=== PATIENT | female | born 1935 | race Caucasian/White ===

== ENCOUNTER 2016-09-01 17:16 | Inpatient (IN) | payer MEDICARE, OTHER ==
[2016-09-01] MEDS ORDERED: SODIUM CHLORIDE 0.9% 1,000 ML IV ONE (17:30)
[2016-09-01] MEDS ORDERED: cefTRIAXone 1 GM in SODIUM CHLORIDE 0.9% MINIBAG 100 ML IV STA (20:10)
[2016-09-01] MEDS ORDERED: cefTRIAXone 1 GM VIAL ONE (20:20)
[2016-09-01] MEDS ORDERED: metroNIDAZOLE 250 MG TABLET PO STA (20:50)
[2016-09-01] MEDS ORDERED: metroNIDAZOLE 250 MG TABLET PO ONE (20:56)
[2016-09-01] MEDS ORDERED: SODIUM CHLORIDE FLUSH 0.9% 10 ML SYRINGE IVP PRN (21:31)
[2016-09-01] MEDS ORDERED: ONDANSETRON 4 MG/2 ML VIAL IVP PRN (21:31)
[2016-09-01] MEDS: metroNIDAZOLE 250 MG TABLET PO SCH (22:23)
[2016-09-01] MEDS: SODIUM CHLORIDE 0.9% 1,000 ML IV SCH (22:23)
[2016-09-01] MEDS: SODIUM CHLORIDE FLUSH 0.9% 10 ML SYRINGE IVP SCH (22:24)
[2016-09-01] MEDS: MORPHINE 2 MG/ML SYRINGE IVP PRN (23:46)
[2016-09-02] MEDS ORDERED: IOPAMIDOL-300 100 ML VIAL IVP ONE (00:26)
[2016-09-02] MEDS: LEVOTHYROXINE 75 MCG TABLET PO SCH (06:22)
[2016-09-02] MEDS: metroNIDAZOLE 250 MG TABLET PO SCH ×3 (06:22→20:48)
[2016-09-02] MEDS: traMADol 50 MG TABLET PO PRN ×3 (06:22→20:48)
[2016-09-02] MEDS: GABAPENTIN 300 MG CAPSULE PO SCH ×3 (06:23→20:48)
[2016-09-02] MEDS: SODIUM CHLORIDE FLUSH 0.9% 10 ML SYRINGE IVP SCH ×3 (06:27→21:41)
[2016-09-02] MEDS: INSULIN ASPART 300 UNIT/3 ML PEN SUBQ SCH ×4 (08:06→20:47)
[2016-09-02] MEDS: SODIUM CHLORIDE 0.9% 1,000 ML IV SCH ×2 (08:23→17:13)
[2016-09-02] MEDS: LISINOPRIL 20 MG TABLET PO SCH (08:23)
[2016-09-02] MEDS: amLODIPine 5 MG TABLET PO SCH (08:23)
[2016-09-02] MEDS: MULTIVITAMIN TABLET PO SCH (08:23)
[2016-09-02] MEDS: ACETAMINOPHEN 325 MG TABLET PO PRN ×2 (08:24→13:22)
[2016-09-02] MEDS: hydroCHLOROthiazide 12.5 MG CAPSULE PO SCH (08:24)
[2016-09-02] MEDS: POLYETHYLENE GLYCOL 3350 17 GM PACKET PO SCH (08:25)
[2016-09-02] MEDS: DULoxetine 30 MG CAPSULE PO SCH (08:25)
[2016-09-02] MEDS: cefTRIAXone 1 GM VIAL IM SCH (08:27)
[2016-09-02] MEDS ORDERED: NON FORMULARY MED (Lisinopril [Lisinopril] 40 MG) ORAL SCH (09:00)
[2016-09-02] MEDS ORDERED: RIVAROXABAN 10 MG TABLET PO SCH (09:00)
[2016-09-02] MEDS ORDERED: NON FORMULARY MED (Rivaroxaban [Xarelto] 20 MG) ORAL SCH (09:00)
[2016-09-02] MEDS ORDERED: NON FORMULARY MED (Multivitamin [Multivitamins] 1 EACH) ORAL SCH (09:00)
[2016-09-02] MEDS: MORPHINE 2 MG/ML SYRINGE IVP PRN (17:11)
[2016-09-02] MEDS: INSULIN GLARGINE 300 UNIT/3 ML PEN SUBQ SCH (20:46)
[2016-09-02] MEDS: ATORVASTATIN 10 MG TABLET PO SCH (20:48)
[2016-09-02] MEDS ORDERED: GABAPENTIN 300 MG CAPSULE PO SCH (21:00)
[2016-09-02] MEDS ORDERED: INSULIN GLARGINE 300 UNIT/3 ML PEN SUBQ SCH (21:00)
[2016-09-02] MEDS ORDERED: ZINC OXIDE 20% OINT 28.35 GM TUBE TOP PRN (22:39)
[2016-09-03] MEDS: traMADol 50 MG TABLET PO PRN ×3 (00:41→22:19)
[2016-09-03] MEDS: SODIUM CHLORIDE 0.9% 1,000 ML IV SCH ×3 (01:55→22:18)
[2016-09-03] MEDS: GABAPENTIN 300 MG CAPSULE PO SCH ×3 (06:05→22:19)
[2016-09-03] MEDS: LEVOTHYROXINE 75 MCG TABLET PO SCH (06:06)
[2016-09-03] MEDS: metroNIDAZOLE 250 MG TABLET PO SCH ×3 (06:06→22:19)
[2016-09-03] MEDS: SODIUM CHLORIDE FLUSH 0.9% 10 ML SYRINGE IVP SCH ×3 (06:49→22:21)
[2016-09-03] MEDS ORDERED: RIVAROXABAN 10 MG TABLET PO SCH (08:00)
[2016-09-03] MEDS: INSULIN ASPART 300 UNIT/3 ML PEN SUBQ SCH ×4 (09:56→22:20)
[2016-09-03] MEDS: DULoxetine 30 MG CAPSULE PO SCH (10:08)
[2016-09-03] MEDS: amLODIPine 5 MG TABLET PO SCH (10:08)
[2016-09-03] MEDS: MULTIVITAMIN TABLET PO SCH (10:08)
[2016-09-03] MEDS: LISINOPRIL 20 MG TABLET PO SCH (10:08)
[2016-09-03] MEDS: POLYETHYLENE GLYCOL 3350 17 GM PACKET PO SCH (10:08)
[2016-09-03] MEDS: hydroCHLOROthiazide 12.5 MG CAPSULE PO SCH (10:08)
[2016-09-03] MEDS: ACETAMINOPHEN 325 MG TABLET PO PRN (10:18)
[2016-09-03] MEDS: cefTRIAXone 1 GM VIAL IM SCH (10:45)
[2016-09-03] MEDS: MORPHINE 2 MG/ML SYRINGE IVP PRN (11:41)
[2016-09-03] MEDS: LIDOCAINE PATCH 5% TOP PRN (11:54)
[2016-09-03] MEDS ORDERED: cefTRIAXone 1 GM VIAL IV SCH (15:00)
[2016-09-03] MEDS: RIVAROXABAN 10 MG TABLET PO SCH (16:45)
[2016-09-03] MEDS ORDERED: POTASSIUM CHLORIDE 10 MEQ CAPSULE PO SCH (17:00)
[2016-09-03] MEDS: INSULIN GLARGINE 300 UNIT/3 ML PEN SUBQ SCH (22:19)
[2016-09-03] MEDS: ATORVASTATIN 10 MG TABLET PO SCH (22:19)
[2016-09-04] MEDS: traMADol 50 MG TABLET PO PRN ×3 (05:34→13:53)
[2016-09-04] MEDS: GABAPENTIN 300 MG CAPSULE PO SCH ×3 (05:34→21:54)
[2016-09-04] MEDS: metroNIDAZOLE 250 MG TABLET PO SCH ×3 (05:34→21:54)
[2016-09-04] MEDS: LEVOTHYROXINE 75 MCG TABLET PO SCH (05:34)
[2016-09-04] MEDS: SODIUM CHLORIDE FLUSH 0.9% 10 ML SYRINGE IVP SCH ×3 (06:13→22:05)
[2016-09-04] MEDS: INSULIN ASPART 300 UNIT/3 ML PEN SUBQ SCH ×4 (08:00→22:04)
[2016-09-04] MEDS: SODIUM CHLORIDE 0.9% 1,000 ML IV SCH ×2 (08:46→18:24)
[2016-09-04] MEDS: MULTIVITAMIN TABLET PO SCH (08:47)
[2016-09-04] MEDS: LISINOPRIL 20 MG TABLET PO SCH (08:47)
[2016-09-04] MEDS: DULoxetine 30 MG CAPSULE PO SCH (08:47)
[2016-09-04] MEDS: POTASSIUM CHLORIDE 10 MEQ CAPSULE PO SCH ×3 (08:47→16:33)
[2016-09-04] MEDS: hydroCHLOROthiazide 12.5 MG CAPSULE PO SCH (08:47)
[2016-09-04] MEDS: POLYETHYLENE GLYCOL 3350 17 GM PACKET PO SCH (08:48)
[2016-09-04] MEDS: amLODIPine 5 MG TABLET PO SCH (08:48)
[2016-09-04] MEDS ORDERED: cefTRIAXone 1 GM in SODIUM CHLORIDE 0.9% MINIBAG 100 ML IV SCH (09:00)
[2016-09-04] MEDS: LIDOCAINE PATCH 5% TOP PRN (12:29)
[2016-09-04] MEDS: ACETAMINOPHEN 1,000 MG/100 ML 100 ML IV PRN (15:48)
[2016-09-04] MEDS: RIVAROXABAN 10 MG TABLET PO SCH (16:33)
[2016-09-04] MEDS: ATORVASTATIN 10 MG TABLET PO SCH (21:54)
[2016-09-04] MEDS: INSULIN GLARGINE 300 UNIT/3 ML PEN SUBQ SCH (22:05)
[2016-09-05] MEDS: SODIUM CHLORIDE 0.9% 1,000 ML IV SCH ×3 (03:30→23:52)
[2016-09-05] MEDS: GABAPENTIN 300 MG CAPSULE PO SCH ×3 (07:13→21:28)
[2016-09-05] MEDS: LEVOTHYROXINE 75 MCG TABLET PO SCH ×2 (07:13→07:17)
[2016-09-05] MEDS: metroNIDAZOLE 250 MG TABLET PO SCH ×3 (07:13→21:28)
[2016-09-05] MEDS: SODIUM CHLORIDE FLUSH 0.9% 10 ML SYRINGE IVP SCH ×3 (07:14→21:29)
[2016-09-05] MEDS: INSULIN ASPART 300 UNIT/3 ML PEN SUBQ SCH ×4 (08:08→21:29)
[2016-09-05] MEDS: MULTIVITAMIN TABLET PO SCH (08:09)
[2016-09-05] MEDS: hydroCHLOROthiazide 12.5 MG CAPSULE PO SCH (08:10)
[2016-09-05] MEDS: traMADol 50 MG TABLET PO PRN (08:10)
[2016-09-05] MEDS: amLODIPine 5 MG TABLET PO SCH (08:10)
[2016-09-05] MEDS: POTASSIUM CHLORIDE 10 MEQ CAPSULE PO SCH ×3 (08:10→16:09)
[2016-09-05] MEDS: POLYETHYLENE GLYCOL 3350 17 GM PACKET PO SCH (08:11)
[2016-09-05] MEDS: DULoxetine 30 MG CAPSULE PO SCH (08:11)
[2016-09-05] MEDS: LISINOPRIL 20 MG TABLET PO SCH (08:11)
[2016-09-05] MEDS: ACETAMINOPHEN 1,000 MG/100 ML 100 ML IV PRN ×2 (08:25→16:08)
[2016-09-05] MEDS: LIDOCAINE PATCH 5% TOP PRN (13:22)
[2016-09-05] MEDS ORDERED: MAGNESIUM SULFATE 2 GRAM 50 ML IV ONE (14:00)
[2016-09-05] MEDS: RIVAROXABAN 10 MG TABLET PO SCH (16:08)
[2016-09-05] MEDS: SACCHAROMYCES BOULARDII 250 MG CAPSULE PO SCH (16:08)
[2016-09-05] MEDS: ATORVASTATIN 10 MG TABLET PO SCH (21:28)
[2016-09-05] MEDS: INSULIN GLARGINE 300 UNIT/3 ML PEN SUBQ SCH (21:28)
[2016-09-06] MEDS: ACETAMINOPHEN 1,000 MG/100 ML 100 ML IV PRN ×2 (00:04→08:46)
[2016-09-06] MEDS: metroNIDAZOLE 250 MG TABLET PO SCH (07:06)
[2016-09-06] MEDS: traMADol 50 MG TABLET PO PRN ×2 (07:09→11:43)
[2016-09-06] MEDS: GABAPENTIN 300 MG CAPSULE PO SCH (07:09)
[2016-09-06] MEDS: LEVOTHYROXINE 75 MCG TABLET PO SCH (07:12)
[2016-09-06] MEDS: hydroCHLOROthiazide 12.5 MG CAPSULE PO SCH (08:47)
[2016-09-06] MEDS: POLYETHYLENE GLYCOL 3350 17 GM PACKET PO SCH (08:47)
[2016-09-06] MEDS: DULoxetine 30 MG CAPSULE PO SCH (08:47)
[2016-09-06] MEDS: SACCHAROMYCES BOULARDII 250 MG CAPSULE PO SCH (08:47)
[2016-09-06] MEDS: POTASSIUM CHLORIDE 10 MEQ CAPSULE PO SCH (08:48)
[2016-09-06] MEDS: INSULIN ASPART 300 UNIT/3 ML PEN SUBQ SCH (08:48)
[2016-09-06] MEDS: amLODIPine 5 MG TABLET PO SCH (08:48)
[2016-09-06] MEDS: LISINOPRIL 20 MG TABLET PO SCH (08:48)
[2016-09-06] MEDS: MULTIVITAMIN TABLET PO SCH (08:48)
[2016-09-06] MEDS: SODIUM CHLORIDE 0.9% 1,000 ML IV SCH (08:49)
[2016-09-06] MEDS: SODIUM CHLORIDE FLUSH 0.9% 10 ML SYRINGE IVP SCH (08:50)
[2016-09-06] MEDS: LIDOCAINE PATCH 5% TOP PRN (11:43)
== END 2016-09-06 12:41 | disposition home health service (06) | DRG 315 ==
DX: I95.9 Hypotension, unspecified (principal); N30.00 Acute cystitis without hematuria; I48.91 Unspecified atrial fibrillation; A04.7 Enterocolitis due to Clostridium difficile; E86.0 Dehydration; R10.12 Left upper quadrant pain; E11.9 Type 2 diabetes mellitus without complications; I10 Essential (primary) hypertension; E03.9 Hypothyroidism, unspecified; I48.2 Chronic atrial fibrillation; E87.6 Hypokalemia; Z96.89 Presence of other specified functional implants; Z90.49 Acquired absence of other specified parts of digestive tract; Z79.4 Long term (current) use of insulin; Z79.01 Long term (current) use of anticoagulants; Z86.718 Personal history of other venous thrombosis and embolism; Z91.81 History of falling

== ENCOUNTER 2017-08-30 12:49 | Inpatient (IN) | payer MEDICARE, OTHER ==
[2017-08-30 13:45] LABS: BASOPHILS # (AUTO) 0.1 10^3/uL (0.0-0.1); BASOPHILS % (AUTO) 1.3 %; HGB - HEMOGLOBIN 13.3 g/dL (12.0-16.0); LYMPHOCYTES # (AUTO) 0.7 10^3/uL (1.5-3.5); LYMPHOCYTES % (AUTO) 15.4 %; MEAN CORPUSCULAR HEMOGLOBIN 30.9 pg (27.0-31.0); MEAN CORPUSCULAR HGB CONC 34.1 g/dL (32.0-36.0); MEAN CORPUSCULAR VOLUME 90.4 fL (81.0-99.0); MEAN PLATELET VOLUME 8.7 fL (7.9-10.8); MONOCYTES # (AUTO) 0.8 10^3/uL (0.0-1.0); MONOCYTES % (AUTO) 16.1 %; NEUTROPHILS # (AUTO) 3.1 10^3/uL (1.5-6.6); NEUTROPHILS % (AUTO) 66.2 %; PLT - PLATELET COUNT 227 10^3/uL (130-450); RED BLOOD COUNT 4.31 10^6/uL (4.20-5.40); RED CELL DISTRIBUTION WIDTH 13.1 % (12.0-15.0); WHITE BLOOD COUNT 4.7 x10^3/uL (4.8-10.8)
[2017-08-30] MEDS ORDERED: diltiaZEM INJ 5 MG/ML VIAL IVP STA ×2 (13:48→15:16)
--- NOTE | 2017-08-30 13:57 | ED Physician Documentation ---
History of Present Illness - Stated complaint Stated Complaint: IRREGULAR/FAST HB - Chief complaint Chief Complaint: General - History obtained from History obtained from: Patient, Family - History of Present Illness Timing: How many days ago (3) - Additonal information Additional information: 82-year-old female with a history of atrial fibrillation on Xarelto has developed weakness and faintness and has rapid heart rate. She has noted over the last several days that if she tries to lay flat she will become more short of breath and she is short of breath on exertion. She did go into see Dr. Waite today and she was sent to the emergency department here with a heart rate of 150. She has had atrial fibrillation and has had rapid ventricular response previously as well. Review of Systems Constitutional: reports: Myalgias, Fatigue. denies: Fever Eyes: denies: Decreased vision Ears: denies: Ear pain Nose: denies: Congestion Throat: denies: Sore throat Cardiac: reports: Chest pain / pressure. denies: Palpitations Respiratory: reports: Dyspnea. denies: Cough GI: denies: Abdominal Pain, Nausea, Vomiting : denies: Dysuria, Frequency Skin: denies: Rash Musculoskeletal: denies: Neck pain, Back pain, Extremity pain Neurologic: reports: Generalized weakness. 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 HEENT: Cataracts - Present Medications Home Medications: Ambulatory Orders Medication Instructions Recorded Confirmed Lisinopril 40 mg ORAL DAILY 04/09/14 09/02/16 Multivitamin [Multivitamins] 1 each ORAL DAILY 04/09/14 09/02/16 Rivaroxaban [Xarelto] 20 mg PO 1700 04/09/14 09/02/16 amLODIPine [Norvasc] 10 mg ORAL DAILY 04/09/14 09/02/16 Gabapentin 600 mg PO QPM 04/21/16 09/02/16 Levothyroxine [Synthroid] 75 mcg PO QDAC 04/21/16 09/02/16 Hydrocodone/Acetaminophen 1 - 2 tab PO Q6H PRN 07/15/16 09/02/16 [Hydrocodon-Acetaminophen 5-325] Atorvastatin [Lipitor] 20 mg PO QPM tablet 07/17/16 09/02/16 Insulin Glargine [Lantus Solostar] 5 units SUBQ QPM 09/02/16 09/02/16 Metformin HCl 500 mg PO BIDWM 09/02/16 09/02/16 Potassium Chloride 20 meq PO DAILYWM 09/02/16 09/02/16 DULoxetine [Cymbalta] 30 mg PO DAILY #30 capsule 09/06/16 Lidocaine Patch 5% [Lidoderm Patch] 1 patch TOP DAILY PRN #30 patch 09/06/16 metroNIDAZOLE [Flagyl] 500 mg PO Q8H #48 tablet 09/06/16 traMADol [Ultram] 50 mg PO Q4HR PRN #30 tablet 09/06/16 - Allergies Allergies/Adverse Reactions: Allergies Allergy/AdvReac Type Severity Reaction Status Date / Time No Known Drug Allergies Allergy Verified 08/30/17 13:04 - Social History Does the pt smoke?: No Smoking Status: Never smoker Does the pt drink ETOH?: No Does the pt have substance abuse?: No - Immunizations Immunizations are current?: Yes - POLST Patient has POLST: No PD ED PE NORMAL - Vitals Vital signs reviewed: Yes - General General: Alert and oriented X 3, No acute distress, Well developed/nourished - HEENT HEENT: Atraumatic, PERRL - Neck Neck: Supple, no meningeal sign - Cardiac Cardiac: Other (tachycardic and regular with 2/6 holosystolic murmer at LSB) - Respiratory Respiratory: No respiratory distress, Other (rales bibasilar) - Abdomen Abdomen: Soft, Non tender - Back Back: No CVA TTP, No spinal TTP - Derm Derm: Normal color, Warm and dry, No rash - Extremities Extremities: No deformity - Neuro Neuro: No motor deficit, No sensory deficit Eye Opening: Spontaneous Motor: Obeys Commands Verbal: Oriented GCS Score: 15 - Psych Psych: Normal mood, Normal affect Results - Vitals Vitals: Vital Signs - 24 hr 08/30/17 08/30/17 08/30/17 12:52 14:01 14:04 Temperature 36.6 C Heart Rate 150 H 151 H 75 Respiratory 20 20 20 Rate Blood Pressure 131/93 H 127/92 H 83/64 L O2 Saturation 93 90 L 90 L 08/30/17 08/30/17 08/30/17 14:09 14:15 15:09 Temperature Heart Rate 76 75 114 H Respiratory 25 H 20 23 Rate Blood Pressure 93/67 94/69 135/74 H O2 Saturation 92 93 98 08/30/17 08/30/17 08/30/17 15:16 15:28 15:35 Temperature Heart Rate 122 H 130 H 76 Respiratory 25 H 30 H Rate Blood Pressure 102/78 85/63 L O2 Saturation 97 90 L 08/30/17 08/30/17 08/30/17 15:40 15:52 16:53 Temperature 36.3 C L Heart Rate 76 75 112 H Respiratory 24 17 27 H Rate Blood Pressure 85/63 L 92/70 130/111 H O2 Saturation 92 95 97 08/30/17 08/30/17 08/30/17 17:34 17:38 17:52 Temperature Heart Rate 151 H 115 H 97 Respiratory 24 24 10 L Rate Blood Pressure 128/100 H 135/110 H 132/80 H O2 Saturation 94 92 94 08/30/17 08/30/17 08/30/17 17:58 18:09 18:16 Temperature Heart Rate 94 75 90 Respiratory 25 H 20 25 H Rate Blood Pressure 112/79 127/70 104/91 H O2 Saturation 93 97 87 L Oxygen O2 Source [] 3.5 L O2 via NC O2 Source [] 3.5 L O2 via NC O2 Source Room air - EKG (time done) 1301 Rate: Rate (enter#) (150) Rhythm: Atrial fibrillation Compare to prior EKG: Changed from prior EKG (SPT 2-2-17 rate has increased .) Computer interpretation: Agree with computer - Labs Labs: Laboratory Tests 08/30/17 08/30/17 08/30/17 13:40 13:40 13:40 WBC 4.7 L RBC 4.31 Hgb 13.3 Hct 38.9 MCV 90.4 MCH 30.9 MCHC 34.1 RDW 13.1 Plt Count 227 MPV 8.7 Neut # 3.1 Lymph # 0.7 L [place] # 0.8 Eos # 0.0 Baso # 0.1 Absolute Nucleated RBC 0.00 Nucleated RBC % 0.0 Sodium 129 L Potassium 4.7 Chloride 98 L Carbon Dioxide 23 Anion Gap 8.0 BUN 31 H Creatinine 0.5 Estimated GFR (MDRD) 118 Glucose 199 H Calcium 8.8 Total Bilirubin 0.8 AST 23 ALT 16 Alkaline Phosphatase 65 Troponin I < 0.04 B-Natriuretic Peptide Total Protein 7.0 Albumin 3.6 Globulin 3.4 Albumin/Globulin Ratio 1.1 Lipase 15 L Urine Color Urine Clarity Urine pH Ur Specific [place] Urine Protein Urine Glucose (UA) Urine Ketones Urine Occult Blood Urine Nitrite Urine Bilirubin Urine Urobilinogen Ur Leukocyte Esterase Urine RBC Urine WBC Ur Squamous Epith Cells Urine Bacteria Ur Microscopic Review Urine Culture Comments 08/30/17 08/30/17 13:40 16:30 WBC RBC Hgb Hct MCV MCH MCHC RDW Plt Count MPV Neut # Lymph # [place] # Eos # Baso # Absolute Nucleated RBC Nucleated RBC % Sodium Potassium Chloride Carbon Dioxide Anion Gap BUN Creatinine Estimated GFR (MDRD) Glucose Calcium Total Bilirubin AST ALT Alkaline Phosphatase Troponin I B-Natriuretic Peptide 732 H Total Protein Albumin Globulin Albumin/Globulin Ratio Lipase Urine Color DARK YELLOW Urine Clarity CLEAR Urine pH 6.0 Ur Specific [place] 1.025 Urine Protein 30 H Urine Glucose (UA) NEGATIVE Urine Ketones NEGATIVE Urine Occult Blood TRACE-INTA Urine Nitrite NEGATIVE Urine Bilirubin NEGATIVE Urine Urobilinogen 1 (NORMAL) Ur Leukocyte Esterase NEGATIVE Urine RBC 0-5 Urine WBC 0-3 Ur Squamous Epith Cells MANY Squamous H Urine Bacteria Moderate H Ur Microscopic Review INDICATED Urine Culture Comments NOT INDICATED - Rads (name of study) 2 view chest Radiology: Prelim report reviewed (Impression: 1. Increasing density in the left lower lobe since 07/20/2016. Differential including worsening atelectasis , small left pleural effusion or left basilar pneumonia. 2. Other findings unchanged noting anterior kyphosis secondary to lower thoracic spine wedging compression fracture.), EMP read indepedently, See rad report Procedures - IVC sono (time) 1825 Bedside IVC sono: IVC measures (cm) (1.87), IVC collapsed c insp (cm) (1.71), High CVP PD MEDICAL DECISION MAKING - ED course Complexity details: reviewed old records, reviewed results, re-evaluated patient , considered differential, d/w patient, d/w family ED course: 82-year-old female sent to the emergency department by her primary care doctor when she arrived to the office with a heart rate of 150. She has a history of chronic atrial fibrillation. She feels she has been in this rhythm for the past 3 days. She is complaining of shortness of breath when she lies flat. Here in the emergency department her rate is 150 and she is administered first 20 mg of diltiazem with improvement in her rate however the rate creeps back up shortly after and she is administered a 25 mg bolus. She again has some improvement in her rate but continues to have spikes in her rate to 150 and metoprolol 5 mg intravenously is administered twice. She has improvement in her rate that is sustained. She has developed some congestive heart failure with this and rate control alone does not significantly improve that she is administered Lasix 40 mg intravenously. She will need to stay in the hospital as she has some hypoxia associated. Departure - Departure Disposition: ED Place in Observation Clinical Impression: Atrial fibrillation with RVR Congestive heart failure Qualifiers: Congestive heart failure type: unspecified Congestive heart failure chronicity : acute Qualified Code(s): I50.9 - Heart failure, unspecified
[2017-08-30 13:59] LABS: ALBUMIN 3.6 g/dL (3.2-5.5); ALBUMIN/GLOBULIN RATIO 1.1 (1.0-2.2); BILIRUBIN,TOTAL 0.8 mg/dL (0.2-1.0); CALCIUM 8.8 mg/dL (8.5-10.3); CREATININE 0.5 mg/dL (0.4-1.0)
--- NOTE | 2017-08-30 15:19 | XRAY Preliminary Report ---
Exam: XR CHEST 2 VIEW X-RAY IMPRESSION: 1. Increasing density in the left lower lobe since 07/20/2016. Differential including worsening atele ctasis, small left pleural effusion or left basilar pneumonia. 2. Other findings unchanged noting anterior kyphosis secondary to a lower thoracic spine wedging comp ression fracture [facility] SITE ID: [id number]
--- NOTE | 2017-08-30 15:19 | XRAY Report ---
EXAM: CHEST RADIOGRAPHY EXAM DATE: 08/30/2017 02:54 PM. CLINICAL HISTORY: Dyspnea/tachy . COMPARISON: 07/18/2016. 07/20/2016 TECHNIQUE: 2 views. FINDINGS: Lungs/Pleura: There is hypoaeration at the left lung base and the left diaphragm contour is not visua lized. Previously, the left diaphragm contour was partially seen indicating an increased left basilar density. The right lung appears clear and unchanged. Mediastinum: Cardiac silhouette is prominent but unchanged. There is moderate thoracic aortic calcifi cation. Other: There is an old wedging compression fracture in the lower thoracic spine with anterior kyphosi s, unchanged. IMPRESSION: 1. Increasing density in the left lower lobe since 07/20/2016. Differential including worsening atele ctasis, small left pleural effusion or left basilar pneumonia. 2. Other findings unchanged noting anterior kyphosis secondary to a lower thoracic spine wedging comp ression fracture [facility] Referring Provider Line: [phone] SITE ID: [id number]
[2017-08-30 16:51] LABS: GLUCOSE, URINE (UA) NEGATIVE (NEGATIVE); KETONES,URINE (UA) NEGATIVE (NEGATIVE); LEUKOCYTE ESTERASE, URINE NEGATIVE (NEGATIVE); NITRITE,URINE NEGATIVE (NEGATIVE); OCCULT BLOOD,URINE TRACE-INTA (NEGATIVE); PROTEIN,URINE 30 mg/dL (NEGATIVE); UROBILINOGEN,URINE 1 (NORMAL) E.U./dL (NORMAL)
[2017-08-30 16:59] LABS: BILIRUBIN,URINE NEGATIVE (NEGATIVE); CLARITY,URINE CLEAR (CLEAR); ICTOTEST,URINE NEGATIVE
[2017-08-30 17:11] LABS: RBC,URINE 0-5 /HPF (0-5); SQUAMOUS EPITHELIAL CELL,UR MANY Squamous (<= Few)
[2017-08-30 17:12] LABS: BACTERIA,URINE Moderate /HPF (None Seen)
[2017-08-30] MEDS ORDERED: METOPROLOL 5 MG/5 ML VIAL IVP STA ×2 (17:14→17:45)
[2017-08-30] MEDS ORDERED: FUROSEMIDE 40 MG/4 ML VIAL IVP STA (18:24)
[2017-08-30] MEDS ORDERED: TEMAZEPAM 15 MG CAPSULE PO PRN (19:21)
[2017-08-30] MEDS ORDERED: PROCHLORPERAZINE 10 MG/2 ML VIAL IVP PRN (19:21)
[2017-08-30] MEDS ORDERED: LIDOCAINE PATCH 5% TOP PRN (19:31)
[2017-08-30 19:55] LABS: CALCIUM 8.6 mg/dL (8.5-10.3); CREATININE 0.5 mg/dL (0.4-1.0); MAGNESIUM 1.8 mg/dL (1.7-2.8); PHOSPHORUS 3.9 mg/dL (2.5-4.6)
--- NOTE | 2017-08-30 20:13 | HISTORY & PHYSICAL EXAMINATION ---
Chief Complaint - Chief Complaint Chief Complaint: Shortness of breath History of Present Illness - Admitted From Admitted From:: home - History Obtained From History obtained from: patient - History of Present Illness HPI Comment/Other: Ms. Vani Hilario is a very pleasant 82-year-old female with a long-standing medical history of hypertension, hypercholesterolemia, diabetes mellitus, and atrial fibrillation which was diagnosed 1 or 2 years ago. Patient relates that she had some chest pain which was self resolving on Monday but she attributed this to having exercised earlier. Today the patient began to have increasing shortness of breath and felt some palpitations in her chest but otherwise denies any other associated symptomatology such as chest pain, nausea vomiting, or cough. She denies any fevers. She came to the [facility] emergency department where she was evaluated and found to have an elevated heart rate in the 150s and an elevated BNP. Chest x-ray showed left lower lobe hypoaeration in the patient did not have fever or elevated white blood cell count.Despite multiple attempts to reduce her rapid ventricular response she continues to have a heart rate in the 120s and she is now admitted to the intensive care unit on a diltiazem drip for rate control and further cardiac management. 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 - Substance History Use: Uses substance without health or social issues: NONE - POLST Patient has POLST: No POLST Status: Full Code Meds/Allgy - Home Medications Home Medications: Ambulatory Orders Medication Instructions Recorded Confirmed Lisinopril 40 mg ORAL DAILY 04/09/14 09/02/16 Multivitamin [Multivitamins] 1 each ORAL DAILY 04/09/14 09/02/16 Rivaroxaban [Xarelto] 20 mg PO 1700 04/09/14 09/02/16 amLODIPine [Norvasc] 10 mg ORAL DAILY 04/09/14 09/02/16 Gabapentin 600 mg PO QPM 04/21/16 09/02/16 Levothyroxine [Synthroid] 75 mcg PO QDAC 04/21/16 09/02/16 Hydrocodone/Acetaminophen 1 - 2 tab PO Q6H PRN 07/15/16 09/02/16 [Hydrocodon-Acetaminophen 5-325] Atorvastatin [Lipitor] 20 mg PO QPM tablet 07/17/16 09/02/16 Insulin Glargine [Lantus Solostar] 5 units SUBQ QPM 09/02/16 09/02/16 Metformin HCl 500 mg PO BIDWM 09/02/16 09/02/16 Potassium Chloride 20 meq PO DAILYWM 09/02/16 09/02/16 DULoxetine [Cymbalta] 30 mg PO DAILY #30 capsule 09/06/16 Lidocaine Patch 5% [Lidoderm Patch] 1 patch TOP DAILY PRN #30 patch 09/06/16 - Allergies Allergies/Adverse Reactions: Allergies Allergy/AdvReac Type Severity Reaction Status Date / Time No Known Drug Allergies Allergy Verified 08/30/17 13:04 Review of Systems - Constitutional Constitutional: reports: Weakness. denies: Fever, Chills, Malaise - Eyes Eyes: denies: Pain, Irritation, Blurred vision - Ears, Nose & Throat Ears, Nose & Throat: denies: Ear pain, Tinnitus, Vertigo, Nasal discharge - Cardiovascular Cariovascular: reports: Irregular heart rate, Palpitations, Decr. exercise tolerance. denies: Chest pain, Edema, Syncope - Respiratory Respiratory: reports: SOB at rest, SOB with exertion. denies: Cough, Sputum production, Wheezing, Hemoptysis - Gastrointestinal Gastrointestinal: denies: Abdominal pain, Abdominal distention, Constipation, Diarrhea, Change in bowel habits, Rectal bleeding - Genitourinary Genitourinary: denies: Dysuria, Frequency, Urgency, Hematuria - Musculoskeletal Musculoskeletal: denies: Muscle pain, Back pain, Muscle aches, Stiffness - Integumentary Integumentary: denies: Rash, Pruritis, Lesions, Dryness - Neurological Neurological: denies: General weakness, Focal weakness, Headache, Dizziness - Psychiatric Psychiatric: denies: Depression, Anxiety, Suicidal, Hallucinations - Endocrine Endocrine: denies: Polyuria, Polydypsia, Polyphagia - Hematologic/Lymphatic Hematologic/Lymphatic: denies: Anemia, Bruising, Petechiae, Lymphadenopathy - All Other Systems All Other Systems: reports: Reviewed and negative Exam - Vital Signs Reviewed Vital Signs: Yes Vital Signs: Vital Signs x48h Temp Pulse Resp BP Pulse Ox 08/30/17 18:32 100 22 120/98 H 94 08/30/17 18:16 90 25 H 104/91 H 87 L 08/30/17 18:09 75 20 127/70 97 08/30/17 17:58 94 25 H 112/79 93 08/30/17 17:52 97 10 L 132/80 H 94 08/30/17 17:38 115 H 24 135/110 H 92 08/30/17 17:34 151 H 24 128/100 H 94 08/30/17 16:53 112 H 27 H 130/111 H 97 08/30/17 15:52 75 17 92/70 95 08/30/17 15:40 36.3 C L 76 24 85/63 L 92 08/30/17 15:35 76 30 H 85/63 L 90 L 08/30/17 15:28 130 H 25 H 102/78 97 08/30/17 15:16 122 H 08/30/17 15:09 114 H 23 135/74 H 98 08/30/17 14:15 75 20 94/69 93 08/30/17 14:09 76 25 H 93/67 92 08/30/17 14:04 75 20 83/64 L 90 L 08/30/17 14:01 151 H 20 127/92 H 90 L 08/30/17 12:52 36.6 C 150 H 20 131/93 H 93 - Physical Exam General Appearance: positive: No acute distress, Alert Eyes Bilateral: positive: Normal inspection, PERRL, EOMI, No lid inflammation ENT: positive: ENT inspection nml, Pharynx nml, No signs of dehydration. negative: Oral lesions Neck: positive: Nml inspection, Thyroid nml, No JVD, Trachea midline. negative : Thyromegaly Respiratory: positive: Chest non-tender, No respiratory distress, Breath sounds nml. negative: Wheezes, Rales, Rhonchi Cardiovascular: positive: No murmur, No gallop, Irregularly irregular Peripheral Pulses: positive: 1+ Abdomen: positive: Non-tender, No organomegaly, Nml bowel sounds, No distention. negative: Guarding, Rebound Back: positive: Nml inspection. negative: CVA tenderness (R), CVA tenderness (L ) Skin: positive: Color nml, No rash, Warm, Dry. negative: Cyanosis Extremities: positive: Non-tender, Full ROM, Nml appearance Neurologic/Psychiatric: positive: Oriented x3, CN's nml (2-12), Motor nml, Sensation nml, Mood/affect nml Conclusion/Plan - Problem List (1) Atrial fibrillation with RVR Conclusion/Plan: We will admit the patient to the intensive care unit and place her on a diltiazem drip. We will titrate to effect and will monitor closely including her serial troponins and BNP. (2) Congestive heart failure Conclusion/Plan: Most likely secondary to the rapid ventricular response. The patient will be placed on a diltiazem drip in the intensive care unit and we will monitor her fluid status. Qualifiers: Congestive heart failure type: unspecified Congestive heart failure chronicity: acute Qualified Code(s): I50.9 - Heart failure, unspecified (3) Hyponatremia Conclusion/Plan: Sodium level is slowly climbing and we will be restricting the patient's fluids. Will monitor daily. (4) Compression fracture of thoracic vertebra Conclusion/Plan: We will continue the patient on her home medications including gabapentin and oxycodone. - Lab Results Lab results reviewed: Yes Fish Bones: 08/30/17 13:40 08/30/17 19:38 - Diagnostic Imaging Results Diagnostic Imaging Results: positive: Final report reviewed Diagnostic Imaging Results Comments: EXAM: CHEST RADIOGRAPHY EXAM DATE: 08/30/2017 02:54 PM. CLINICAL HISTORY: Dyspnea/tachy . COMPARISON: 07/18/2016. 07/20/2016 TECHNIQUE: 2 views. FINDINGS: Lungs/Pleura: There is hypoaeration at the left lung base and the left diaphragm contour is not visualized. Previously, the left diaphragm contour was partially seen indicating an increased left basilar density. The right lung appears clear and unchanged. Mediastinum: Cardiac silhouette is prominent but unchanged. There is moderate thoracic aortic calcification. Other: There is an old wedging compression fracture in the lower thoracic spine with anterior kyphosis, unchanged. IMPRESSION: 1. Increasing density in the left lower lobe since 07/20/2016. Differential including worsening atelectasis, small left pleural effusion or left basilar pneumonia. 2. Other findings unchanged noting anterior kyphosis secondary to a lower thoracic spine wedging compression fracture Core Measures - Anticipated LOS I expect patient to be DC'd or transferred within 96 hours.: Yes - DVT/VTE - Prophylaxis VTE/DVT Device ordered at admit?: Yes
[2017-08-30 20:16] LABS: HB2 TOTAL 14.8 g/dL; HEMOGLOBIN A1C 0.97 g/dL; HEMOGLOBIN A1C % 8.1 % (4.6-6.2)
[2017-08-30] MEDS ORDERED: SODIUM CHLORIDE 0.9% MINIBAG 100 ML IV ONE (21:01)
[2017-08-30] MEDS ORDERED: SODIUM CHLORIDE FLUSH 0.9% 10 ML SYRINGE ONE (21:06)
[2017-08-30] MEDS: diltiaZEM INJ 125 MG in DEXTROSE 5% 100 ML IV SCH (21:06)
[2017-08-30] MEDS: INSULIN GLARGINE 300 UNIT/3 ML PEN SUBQ SCH (21:30)
[2017-08-30] MEDS: INSULIN ASPART 300 UNIT/3 ML PEN SUBQ SCH (21:31)
[2017-08-30] MEDS: ATORVASTATIN 10 MG TABLET PO SCH (21:33)
[2017-08-30] MEDS: GABAPENTIN 300 MG CAPSULE PO SCH (21:33)
[2017-08-31] MEDS: SODIUM CHLORIDE FLUSH 0.9% 10 ML SYRINGE IVP SCH ×4 (00:20→21:19)
[2017-08-31 04:56] LABS: CALCIUM 8.3 mg/dL (8.5-10.3); CREATININE 0.6 mg/dL (0.4-1.0)
[2017-08-31] MEDS: diltiaZEM INJ 125 MG in DEXTROSE 5% 100 ML IV SCH (06:32)
[2017-08-31] MEDS: LEVOTHYROXINE 75 MCG TABLET PO SCH (06:37)
[2017-08-31] MEDS: PANTOPRAZOLE 40 MG TABLET PO SCH ×2 (06:37→15:38)
[2017-08-31] MEDS: INSULIN ASPART 300 UNIT/3 ML PEN SUBQ SCH ×4 (08:06→21:21)
[2017-08-31] MEDS: DULoxetine 30 MG CAPSULE PO SCH (08:07)
[2017-08-31] MEDS: metFORMIN 500 MG TABLET PO SCH ×2 (08:07→17:11)
[2017-08-31] MEDS: LISINOPRIL 20 MG TABLET PO SCH (08:07)
[2017-08-31] MEDS: POTASSIUM CHLORIDE 20 MEQ TABLET PO SCH (08:07)
[2017-08-31] MEDS: MULTIVITAMIN TABLET PO SCH (08:08)
[2017-08-31] MEDS: FUROSEMIDE 20 MG/2 ML VIAL IVP SCH ×2 (08:47→13:43)
[2017-08-31] MEDS: SODIUM CHLORIDE FLUSH 0.9% 10 ML SYRINGE IVP PRN ×2 (08:48→11:12)
[2017-08-31] MEDS ORDERED: diltiaZEM CD 240 MG CAPSULE PO SCH (11:00)
--- NOTE | 2017-08-31 16:43 | PROVIDER PROGRESS NOTE ---
Assessment/Plan - Problem List (1) Atrial fibrillation with RVR Assessment/Plan: Rate is controlled after overnight on Diltiazem drip Will change to po Cardizem CD 240 daily and DC iv Diltiazem Continue telemetry Await W/U before move out of ICU Continue with good rate control. Po Diltiazem wiytll also help with BP control. 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 Continue diuresis with Lasix, follow I&Os and Na, creat and BNP. LVEF is NOT< 35% to start Coreg or BI (3) Hypertension Assessment/Plan: Continue meds (4) Hyponatremia Assessment/Plan: Possibly from volume excess. Will check urine electrolytes if Na no better after diuresis, follow BMP. (5) Diabetes Qualifiers: Diabetes mellitus type: type 2 Assessment/Plan: Continue DM diet and meds [place] HbA1c. - Current Meds Current Meds: Current Medications Generic Name Dose Route Start Last Admin Trade Name Ronaldo PRN Reason Stop Dose Admin Atorvastatin Calcium 20 mg 08/30/17 21:00 08/30/17 21:33 Lipitor PO 20 mg QPM SHERWIN Administration Diltiazem HCl 240 mg 08/31/17 11:00 08/31/17 10:34 Cardizem Cd PO 240 mg DAILY SHERWIN Administration Duloxetine HCl 30 mg 08/31/17 09:00 08/31/17 08:07 Cymbalta PO 30 mg DAILY SHERWIN Administration Furosemide 20 mg 08/31/17 09:00 08/31/17 13:43 Lasix Inj 20mg Vial IVP 20 mg BIDDIURETIC SHERWIN Administration Gabapentin 600 mg 08/30/17 21:00 08/30/17 21:33 Neurontin PO 600 mg QPM SHERWIN Administration Insulin Aspart 2 - 10 unit 08/31/17 11:46 08/31/17 12:08 Novolog SUBQ 4 unit 0800,1200,1700,2100 SHERWIN Administration Protocol Insulin Glargine 5 unit 08/30/17 21:00 08/30/17 21:30 Lantus Solostar SUBQ 5 unit QPM SHERWIN Administration Levothyroxine Sodium 75 mcg 08/31/17 07:00 08/31/17 06:37 Synthroid PO 75 mcg QDAC SHERWIN Administration Lisinopril 40 mg 08/31/17 09:00 08/31/17 08:07 Zestril PO 40 mg DAILY SHERWIN Administration Metformin HCl 500 mg 08/31/17 08:00 08/31/17 08:07 Glucophage PO 500 mg BIDWM SHERWIN Administration Multivitamins 1 tab 08/31/17 09:00 08/31/17 08:08 Theragran PO 1 tab DAILY SHERWIN Administration Pantoprazole Sodium 40 mg 08/31/17 07:00 08/31/17 15:38 Protonix PO 40 mg BIDAC SHERWIN Administration Potassium Chloride 20 meq 08/31/17 08:00 08/31/17 08:07 K-Dur PO 20 meq DAILYWM SHERWIN Administration Sodium Chloride 10 ml 08/30/17 22:00 08/31/17 13:43 Normal Saline Flush 0.9% IVP 10 ml Q8HR SHERWIN Administration Sodium Chloride 10 ml 08/30/17 19:21 08/31/17 11:12 Normal Saline Flush 0.9% IVP 10 ml PRN PRN Administration NEEDED PER PROVIDER ORDERS - Lab Result Fish Bone Diagrams: 08/30/17 13:40 08/31/17 04:14 - Additional Planning My Orders: My Active Orders 08/31/17 08:00 Echo Transthoracic Complete [ECHO] Routine 08/31/17 09:00 FUROSEMIDE INJ 20mg VIAL [LASIX INJ 20mg VIAL] 20 mg IVP BIDDIURETIC 08/31/17 11:00 diltiaZEM CD [Cardizem Cd] 240 mg PO DAILY 08/31/17 11:46 Insulin Aspart [NovoLOG] 2 - 10 unit SUBQ 0800,1200,1700,2100 08/31/17 14:23 Activity Orders [RC] QSHIFT Subjective - Subjective Patient Reports: Resting Comfortably Nursing Reports: Other (Pt is mouth breathing, on O2 by mask) Objective Vital Signs: Vital Signs - 24 hr 08/30/17 08/30/17 08/30/17 20:00 20:02 21:00 Temperature Heart Rate 150 H Heart Rate [ Monitoring electrodes] Respiratory 24 Rate Blood Pressure 124/89 H Blood Pressure 137/85 H 122/96 H [Left Brachial artery] O2 Saturation 94 08/30/17 08/30/17 08/30/17 21:06 22:00 23:00 Temperature 37.2 C 36.8 C Heart Rate Heart Rate [ 122 H 104 H Monitoring electrodes] Respiratory 24 29 H Rate Blood Pressure 122/96 H Blood Pressure 146/82 H 117/79 [Left Brachial artery] O2 Saturation 96 95 08/31/17 08/31/17 08/31/17 00:00 01:00 02:00 Temperature 37.0 C Heart Rate Heart Rate [ 97 77 87 Monitoring electrodes] Respiratory 27 H 26 H 28 H Rate Blood Pressure Blood Pressure 113/78 115/72 126/77 [Left Brachial artery] O2 Saturation 91 L 92 91 L 08/31/17 08/31/17 08/31/17 03:00 04:00 05:00 Temperature Heart Rate Heart Rate [ 97 95 102 H Monitoring electrodes] Respiratory 26 H 24 25 H Rate Blood Pressure Blood Pressure 132/72 H 91/55 L 137/76 H [Left Brachial artery] O2 Saturation 91 L 96 90 L 08/31/17 08/31/17 08/31/17 06:00 06:57 07:53 Temperature Heart Rate Heart Rate [ 76 90 49 L Monitoring electrodes] Respiratory 22 23 27 H Rate Blood Pressure Blood Pressure 112/73 129/82 H 129/80 [Left Brachial artery] O2 Saturation 95 98 98 08/31/17 08/31/17 08/31/17 08:22 08:50 09:00 Temperature 36.7 C Heart Rate Heart Rate [ 131 H 78 86 Monitoring electrodes] Respiratory 25 H 26 H 23 Rate Blood Pressure Blood Pressure 137/74 H 128/77 102/79 [Left Brachial artery] O2 Saturation 94 95 96 08/31/17 08/31/17 08/31/17 09:34 10:00 11:00 Temperature Heart Rate Heart Rate [ 75 75 74 Monitoring electrodes] Respiratory 20 17 18 Rate Blood Pressure Blood Pressure 116/70 114/75 122/78 [Left Brachial artery] O2 Saturation 96 96 92 08/31/17 08/31/17 08/31/17 12:00 13:00 14:00 Temperature 36.4 C L Heart Rate Heart Rate [ 85 94 100 Monitoring electrodes] Respiratory 25 H 21 24 Rate Blood Pressure Blood Pressure 140/86 H 130/86 H 138/73 H [Left Brachial artery] O2 Saturation 94 99 98 08/31/17 08/31/17 15:00 16:00 Temperature Heart Rate Heart Rate [ 81 75 Monitoring electrodes] Respiratory 25 H 24 Rate Blood Pressure Blood Pressure 108/76 116/76 [Left Brachial artery] O2 Saturation 98 97 Oxygen O2 Source Nasal cannula I&O (Last 24 Hrs): Intake and Output Totals x24h 08/29/17 08/30/17 08/31/17 23:59 23:59 23:59 Intake Total 13.667 1235.087 Output Total 100 850 Balance -86.333 385.087 General: No acute distress, Other (Somnolent) HEENT: Mucous membr. moist/pink Neck: Supple, No JVD Neuro: Other (Sleeping) Cardiovascular: Regular rate, Other (1/6 systolic murmur at LLSB) Respiratory: No respiratory distress Abdomen: Soft Extremities: No edema (Trace pedal edema) - Results Results: Laboratory Results WBC 4.7 x10^3/uL (4.8-10.8) L 08/30/17 13:40 RBC 4.31 10^6/uL (4.20-5.40) 08/30/17 13:40 Hgb 13.3 g/dL (12.0-16.0) 08/30/17 13:40 Hct 38.9 % (37.0-47.0) 08/30/17 13:40 MCV 90.4 fL (81.0-99.0) 08/30/17 13:40 MCH 30.9 pg (27.0-31.0) 08/30/17 13:40 MCHC 34.1 g/dL (32.0-36.0) 08/30/17 13:40 RDW 13.1 % (12.0-15.0) 08/30/17 13:40 Plt Count 227 10^3/uL (130-450) 08/30/17 13:40 MPV 8.7 fL (7.9-10.8) 08/30/17 13:40 Neut # 3.1 10^3/uL (1.5-6.6) 08/30/17 13:40 Lymph # 0.7 10^3/uL (1.5-3.5) L 08/30/17 13:40 [place] # 0.8 10^3/uL (0.0-1.0) 08/30/17 13:40 Eos # 0.0 10^3/uL (0.0-0.7) 08/30/17 13:40 Baso # 0.1 10^3/uL (0.0-0.1) 08/30/17 13:40 Absolute Nucleated RBC 0.00 x10^3/uL 08/30/17 13:40 Nucleated RBC % 0.0 /100WBC 08/30/17 13:40 Sodium 130 mmol/L (135-145) L 08/31/17 04:14 Potassium 4.1 mmol/L (3.5-5.0) 08/31/17 04:14 Chloride 97 mmol/L (101-111) L 08/31/17 04:14 Carbon Dioxide 25 mmol/L (21-32) 08/31/17 04:14 Anion Gap 8.0 (6-13) 08/31/17 04:14 BUN 25 mg/dL (6-20) H 08/31/17 04:14 Creatinine 0.6 mg/dL (0.4-1.0) 08/31/17 04:14 Estimated GFR (MDRD) 96 (>89) 08/31/17 04:14 Glucose 185 mg/dL (70-100) H 08/31/17 04:14 POC Whole Bld Glucose 183 mg/dL (70 - 100) H 08/31/17 16:30 Glycated Hemoglobin 8.1 % (4.6-6.2) H 08/30/17 19:52 Estim Average Glucose 186 (70-100) H 08/30/17 19:52 Calcium 8.3 mg/dL (8.5-10.3) L 08/31/17 04:14 Phosphorus 3.9 mg/dL (2.5-4.6) 08/30/17 19:38 Magnesium 1.8 mg/dL (1.7-2.8) 08/30/17 19:38 Total Bilirubin 0.8 mg/dL (0.2-1.0) 08/30/17 13:40 AST 23 IU/L (10-42) 08/30/17 13:40 ALT 16 IU/L (10-60) 08/30/17 13:40 Alkaline Phosphatase 65 IU/L (42-121) 08/30/17 13:40 Troponin I < 0.04 ng/mL (<0.49) 08/31/17 06:23 B-Natriuretic Peptide 732 pg/mL (5-100) H 08/30/17 13:40 Total Protein 7.0 g/dL (6.7-8.2) 08/30/17 13:40 Albumin 3.6 g/dL (3.2-5.5) 08/30/17 13:40 Globulin 3.4 g/dL (2.1-4.2) 08/30/17 13:40 Albumin/Globulin Ratio 1.1 (1.0-2.2) 08/30/17 13:40 Lipase 15 U/L (22-51) L 08/30/17 13:40 Urine Color DARK YELLOW 08/30/17 16:30 Urine Clarity CLEAR (CLEAR) 08/30/17 16:30 Urine pH 6.0 PH (5.0-7.5) 08/30/17 16:30 Ur Specific [place] 1.025 (1.002-1.030) 08/30/17 16:30 Urine Protein 30 mg/dL (NEGATIVE) H 08/30/17 16:30 Urine Glucose (UA) NEGATIVE mg/dL (NEGATIVE) 08/30/17 16:30 Urine Ketones NEGATIVE mg/dL (NEGATIVE) 08/30/17 16:30 Urine Occult Blood TRACE-INTA (NEGATIVE) 08/30/17 16:30 Urine Nitrite NEGATIVE (NEGATIVE) 08/30/17 16:30 Urine Bilirubin NEGATIVE (NEGATIVE) 08/30/17 16:30 Urine Urobilinogen 1 (NORMAL) E.U./dL (NORMAL) 08/30/17 16:30 Ur Leukocyte Esterase NEGATIVE (NEGATIVE) 08/30/17 16:30 Urine RBC 0-5 /HPF (0-5) 08/30/17 16:30 Urine WBC 0-3 /HPF (0-5) 08/30/17 16:30 Ur Squamous Epith Cells MANY Squamous (<= Few) H 08/30/17 16:30 Urine Bacteria Moderate /HPF (None Seen) H 08/30/17 16:30 Ur Microscopic Review INDICATED 08/30/17 16:30 Urine Culture Comments NOT INDICATED 08/30/17 16:30 - Procedures Procedures: Procedures CATARAC PHACOEMULS/ASPIR (06/04/14) INSERT LENS AT CATAR EXT (06/04/14) RESECTION OF GALLBLADDER, PERCUTANEOUS ENDOSCOPIC APPROACH (07/16/16)
[2017-08-31] MEDS: RIVAROXABAN 10 MG TABLET PO SCH (17:11)
[2017-08-31] MEDS: GABAPENTIN 300 MG CAPSULE PO SCH (21:18)
[2017-08-31] MEDS: ATORVASTATIN 10 MG TABLET PO SCH (21:18)
[2017-08-31] MEDS: INSULIN GLARGINE 300 UNIT/3 ML PEN SUBQ SCH (21:21)
[2017-09-01 04:30] LABS: CALCIUM 8.3 mg/dL (8.5-10.3); CREATININE 0.6 mg/dL (0.4-1.0); MAGNESIUM 1.7 mg/dL (1.7-2.8)
[2017-09-01] MEDS: PANTOPRAZOLE 40 MG TABLET PO SCH ×2 (06:41→15:29)
[2017-09-01] MEDS: FUROSEMIDE 20 MG/2 ML VIAL IVP SCH ×2 (06:41→13:55)
[2017-09-01] MEDS: LEVOTHYROXINE 75 MCG TABLET PO SCH (06:41)
[2017-09-01] MEDS: SODIUM CHLORIDE FLUSH 0.9% 10 ML SYRINGE IVP SCH ×3 (06:41→20:43)
[2017-09-01] MEDS ORDERED: diltiaZEM CD 240 MG CAPSULE PO SCH (08:00)
[2017-09-01] MEDS ORDERED: METOPROLOL 5 MG/5 ML VIAL IVP PRN (08:01)
[2017-09-01] MEDS: DULoxetine 30 MG CAPSULE PO SCH (08:13)
[2017-09-01] MEDS: POTASSIUM CHLORIDE 20 MEQ TABLET PO SCH (08:13)
[2017-09-01] MEDS: MULTIVITAMIN TABLET PO SCH (08:15)
[2017-09-01] MEDS: metFORMIN 500 MG TABLET PO SCH ×2 (08:15→16:57)
[2017-09-01] MEDS: LISINOPRIL 20 MG TABLET PO SCH (08:15)
[2017-09-01] MEDS: INSULIN ASPART 300 UNIT/3 ML PEN SUBQ SCH ×4 (08:17→20:43)
[2017-09-01] MEDS: SODIUM CHLORIDE FLUSH 0.9% 10 ML SYRINGE IVP PRN ×3 (08:22→17:33)
[2017-09-01] MEDS ORDERED: diltiaZEM CD 120 MG CAPSULE PO SCH (09:00)
[2017-09-01] MEDS ORDERED: MIN OIL/DIMETHICON/COCONUT OIL 92 GM TUBE TOP PRN (10:30)
[2017-09-01] MEDS: METOPROLOL 5 MG/5 ML VIAL IVP PRN ×2 (12:27→17:28)
[2017-09-01] MEDS: CARVEDILOL 3.125 MG TABLET PO SCH ×2 (15:29→20:40)
[2017-09-01] MEDS: RIVAROXABAN 10 MG TABLET PO SCH (16:57)
--- NOTE | 2017-09-01 18:46 | PROVIDER PROGRESS NOTE ---
Assessment/Plan - Problem List (1) Atrial fibrillation with RVR Assessment/Plan: Paroxysms occurring, will increase meds. Will need to decrease ACEs for BP, in order to increase HR slowing meds. (2) Congestive heart failure Qualifiers: Congestive heart failure type: unspecified Congestive heart failure chronicity: acute Qualified Code(s): I50.9 - Heart failure, unspecified Assessment/Plan: Echo shows global hypokinesis, EF 40%. Will continue BI, add Coreg and Spironolactone. Watch electrolytes and Mg. (3) Hypertension Assessment/Plan: Stable, in fact low. as HR slowinhg meds are being increased. Pt will remain in ICU because of this. (4) Hyponatremia Assessment/Plan: Slowly improving as diuresing. (5) Diabetes Qualifiers: Diabetes mellitus type: type 2 Assessment/Plan: Continue diet and Insulin coverage. - Current Meds Current Meds: Current Medications Generic Name Dose Route Start Last Admin Trade Name Freq PRN Reason Stop Dose Admin Atorvastatin Calcium 20 mg 08/30/17 21:00 08/31/17 21:18 Lipitor PO 20 mg QPM SHERWIN Administration Carvedilol 6.25 mg 09/01/17 16:00 09/01/17 15:29 Coreg PO 6.25 mg BID SHERWIN Administration Duloxetine HCl 30 mg 08/31/17 09:00 09/01/17 08:13 Cymbalta PO 30 mg DAILY SHERWIN Administration Furosemide 20 mg 08/31/17 09:00 09/01/17 13:55 Lasix Inj 20mg Vial IVP 20 mg BIDDIURETIC SHERWIN Administration Gabapentin 600 mg 08/30/17 21:00 08/31/17 21:18 Neurontin PO 600 mg QPM SHERWIN Administration Insulin Aspart 2 - 10 unit 08/31/17 11:46 09/01/17 16:58 Novolog SUBQ 2 unit 0800,1200,1700,2100 SHERWIN Administration Protocol Insulin Glargine 5 unit 08/30/17 21:00 08/31/17 21:21 Lantus Solostar SUBQ 5 unit QPM SHERWIN Administration Levothyroxine Sodium 75 mcg 08/31/17 07:00 09/01/17 06:41 Synthroid PO 75 mcg QDAC SHERWIN Administration Metformin HCl 500 mg 08/31/17 08:00 09/01/17 16:57 Glucophage PO 500 mg BIDWM SHERWIN Administration Metoprolol Tartrate 2.5 mg 09/01/17 12:23 09/01/17 17:28 Lopressor Inj IVP 2.5 mg Q4H PRN Administration Tachycardia Mineral Oil 1 applic 09/01/17 10:30 09/01/17 11:51 [place] TOP 1 applic PRN PRN Administration Skin Care Multivitamins 1 tab 08/31/17 09:00 09/01/17 08:15 Theragran PO 1 tab DAILY SHERWIN Administration Pantoprazole Sodium 40 mg 08/31/17 07:00 09/01/17 15:29 Protonix PO 40 mg BIDAC SHERWIN Administration Potassium Chloride 20 meq 08/31/17 08:00 09/01/17 08:13 K-Dur PO 20 meq DAILYWM SHERWIN Administration Rivaroxaban 20 mg 08/31/17 17:00 09/01/17 16:57 Xarelto PO 20 mg 1700 SHERWIN Administration Sodium Chloride 10 ml 08/30/17 22:00 09/01/17 12:28 Normal Saline Flush 0.9% IVP 10 ml Q8HR SHERWIN Administration Sodium Chloride 10 ml 08/30/17 19:21 09/01/17 17:33 Normal Saline Flush 0.9% IVP 10 ml PRN PRN Administration NEEDED PER PROVIDER ORDERS - Lab Result Fish Bone Diagrams: 08/30/17 13:40 09/01/17 03:58 - Additional Planning My Orders: My Active Orders 09/01/17 12:23 Metoprolol Inj [Lopressor Inj] 2.5 mg IVP Q4H PRN 09/01/17 16:00 Carvedilol [Coreg] 6.25 mg PO BID 09/02/17 05:00 LIPID Panel [CHEM] Routine TSH [THYROID STIMULATING HORMONE] [IAI] Routine 09/02/17 09:00 Lisinopril [Zestril] 20 mg PO DAILY Spironolactone [Aldactone] 25 mg PO DAILY diltiaZEM CD [Cardizem Cd] 360 mg PO DAILY Subjective - Subjective Patient Reports: Feeling Better, Shortness of Breath Nursing Reports: Other (HR has intermittently risen to 150's today) Objective Vital Signs: Vital Signs - 24 hr 08/31/17 08/31/17 08/31/17 19:00 20:00 21:00 Temperature 36.8 C Heart Rate [ 99 105 H 104 H Monitoring electrodes] Respiratory 20 27 H 19 Rate Blood Pressure Blood Pressure 124/85 H 153/74 H 136/71 H [Left Brachial artery] O2 Saturation 96 99 98 08/31/17 08/31/17 09/01/17 22:00 23:00 01:00 Temperature Heart Rate [ 110 H 98 97 Monitoring electrodes] Respiratory 22 18 15 Rate Blood Pressure Blood Pressure 142/69 H 137/62 H 127/80 [Left Brachial artery] O2 Saturation 96 96 97 09/01/17 09/01/17 09/01/17 03:40 05:00 07:40 Temperature 36.3 C L 36.8 C Heart Rate [ 99 149 H Monitoring electrodes] Respiratory 16 24 Rate Blood Pressure Blood Pressure 137/70 H 131/94 H [Left Brachial artery] O2 Saturation 100 95 09/01/17 09/01/17 09/01/17 08:15 08:46 09:00 Temperature Heart Rate [ 152 H 98 Monitoring electrodes] Respiratory 28 H 23 Rate Blood Pressure 126/73 Blood Pressure 112/90 H 126/73 [Left Brachial artery] O2 Saturation 98 96 09/01/17 09/01/17 09/01/17 12:27 12:56 13:00 Temperature Heart Rate [ 149 H 84 Monitoring electrodes] Respiratory 24 Rate Blood Pressure 123/93 H 100/84 H Blood Pressure 104/84 H [Left Brachial artery] O2 Saturation 98 09/01/17 09/01/17 09/01/17 15:41 17:28 17:58 Temperature Heart Rate [ 78 Monitoring electrodes] Respiratory 25 H Rate Blood Pressure 135/98 H 113/74 Blood Pressure 119/79 [Left Brachial artery] O2 Saturation 97 Oxygen O2 Source Nasal cannula I&O (Last 24 Hrs): Intake and Output Totals x24h 08/30/17 08/31/17 09/01/17 23:59 23:59 23:59 Intake Total 13.667 8007.255 8796 Output Total 100 1350 840 Balance -86.333 575.087 420 General: Alert, Oriented x3 HEENT: Mucous membr. moist/pink Neck: Supple, No JVD Cardiovascular: No murmurs Respiratory: Other (Prolonged expiratory phase) Abdomen: Normal bowel sounds Extremities: Other (1+ edema) - Results Results: Laboratory Results WBC 4.7 x10^3/uL (4.8-10.8) L 08/30/17 13:40 RBC 4.31 10^6/uL (4.20-5.40) 08/30/17 13:40 Hgb 13.3 g/dL (12.0-16.0) 08/30/17 13:40 Hct 38.9 % (37.0-47.0) 08/30/17 13:40 MCV 90.4 fL (81.0-99.0) 08/30/17 13:40 MCH 30.9 pg (27.0-31.0) 08/30/17 13:40 MCHC 34.1 g/dL (32.0-36.0) 08/30/17 13:40 RDW 13.1 % (12.0-15.0) 08/30/17 13:40 Plt Count 227 10^3/uL (130-450) 08/30/17 13:40 MPV 8.7 fL (7.9-10.8) 08/30/17 13:40 Neut # 3.1 10^3/uL (1.5-6.6) 08/30/17 13:40 Lymph # 0.7 10^3/uL (1.5-3.5) L 08/30/17 13:40 [place] # 0.8 10^3/uL (0.0-1.0) 08/30/17 13:40 Eos # 0.0 10^3/uL (0.0-0.7) 08/30/17 13:40 Baso # 0.1 10^3/uL (0.0-0.1) 08/30/17 13:40 Absolute Nucleated RBC 0.00 x10^3/uL 08/30/17 13:40 Nucleated RBC % 0.0 /100WBC 08/30/17 13:40 Sodium 130 mmol/L (135-145) L 09/01/17 03:58 Potassium 4.3 mmol/L (3.5-5.0) 09/01/17 03:58 Chloride 97 mmol/L (101-111) L 09/01/17 03:58 Carbon Dioxide 26 mmol/L (21-32) 09/01/17 03:58 Anion Gap 7.0 (6-13) 09/01/17 03:58 BUN 23 mg/dL (6-20) H 09/01/17 03:58 Creatinine 0.6 mg/dL (0.4-1.0) 09/01/17 03:58 Estimated GFR (MDRD) 96 (>89) 09/01/17 03:58 Glucose 155 mg/dL (70-100) H 09/01/17 03:58 POC Whole Bld Glucose 162 mg/dL (70 - 100) H 09/01/17 16:34 Glycated Hemoglobin 8.1 % (4.6-6.2) H 08/30/17 19:52 Estim Average Glucose 186 (70-100) H 08/30/17 19:52 Calcium 8.3 mg/dL (8.5-10.3) L 09/01/17 03:58 Phosphorus 3.9 mg/dL (2.5-4.6) 08/30/17 19:38 Magnesium 1.7 mg/dL (1.7-2.8) 09/01/17 03:58 Total Bilirubin 0.8 mg/dL (0.2-1.0) 08/30/17 13:40 AST 23 IU/L (10-42) 08/30/17 13:40 ALT 16 IU/L (10-60) 08/30/17 13:40 Alkaline Phosphatase 65 IU/L (42-121) 08/30/17 13:40 Troponin I < 0.04 ng/mL (<0.49) 08/31/17 06:23 B-Natriuretic Peptide 478 pg/mL (5-100) H 09/01/17 03:58 Total Protein 7.0 g/dL (6.7-8.2) 08/30/17 13:40 Albumin 3.6 g/dL (3.2-5.5) 08/30/17 13:40 Globulin 3.4 g/dL (2.1-4.2) 08/30/17 13:40 Albumin/Globulin Ratio 1.1 (1.0-2.2) 08/30/17 13:40 Lipase 15 U/L (22-51) L 08/30/17 13:40 Urine Color DARK YELLOW 08/30/17 16:30 Urine Clarity CLEAR (CLEAR) 08/30/17 16:30 Urine pH 6.0 PH (5.0-7.5) 08/30/17 16:30 Ur Specific [place] 1.025 (1.002-1.030) 08/30/17 16:30 Urine Protein 30 mg/dL (NEGATIVE) H 08/30/17 16:30 Urine Glucose (UA) NEGATIVE mg/dL (NEGATIVE) 08/30/17 16:30 Urine Ketones NEGATIVE mg/dL (NEGATIVE) 08/30/17 16:30 Urine Occult Blood TRACE-INTA (NEGATIVE) 08/30/17 16:30 Urine Nitrite NEGATIVE (NEGATIVE) 08/30/17 16:30 Urine Bilirubin NEGATIVE (NEGATIVE) 08/30/17 16:30 Urine Urobilinogen 1 (NORMAL) E.U./dL (NORMAL) 08/30/17 16:30 Ur Leukocyte Esterase NEGATIVE (NEGATIVE) 08/30/17 16:30 Urine RBC 0-5 /HPF (0-5) 08/30/17 16:30 Urine WBC 0-3 /HPF (0-5) 08/30/17 16:30 Ur Squamous Epith Cells MANY Squamous (<= Few) H 08/30/17 16:30 Urine Bacteria Moderate /HPF (None Seen) H 08/30/17 16:30 Ur Microscopic Review INDICATED 08/30/17 16:30 Urine Culture Comments NOT INDICATED 08/30/17 16:30 - Procedures Procedures: Procedures CATARAC PHACOEMULS/ASPIR (06/04/14) INSERT LENS AT CATAR EXT (06/04/14) RESECTION OF GALLBLADDER, PERCUTANEOUS ENDOSCOPIC APPROACH (07/16/16)
[2017-09-01] MEDS: ATORVASTATIN 10 MG TABLET PO SCH (20:40)
[2017-09-01] MEDS: GABAPENTIN 300 MG CAPSULE PO SCH (20:41)
[2017-09-01] MEDS: INSULIN GLARGINE 300 UNIT/3 ML PEN SUBQ SCH (20:42)
[2017-09-02 05:07] LABS: CALCIUM 8.4 mg/dL (8.5-10.3); CREATININE 0.6 mg/dL (0.4-1.0)
[2017-09-02 05:15] LABS: CHOL/HDL RATIO 3.2 (<4.4); CHOLESTEROL 101 mg/dL; HDL CHOLESTEROL 32 mg/dL; LDL CHOLESTEROL,CALCULATED 56 mg/dL; LDL/HDL RATIO 1.8 (<4.4); VLDL CHOLESTEROL 13 mg/dL
[2017-09-02] MEDS: PANTOPRAZOLE 40 MG TABLET PO SCH ×2 (06:34→16:20)
[2017-09-02] MEDS: FUROSEMIDE 20 MG/2 ML VIAL IVP SCH ×3 (06:34→13:59)
[2017-09-02] MEDS: LEVOTHYROXINE 75 MCG TABLET PO SCH (06:34)
[2017-09-02] MEDS: SODIUM CHLORIDE FLUSH 0.9% 10 ML SYRINGE IVP SCH ×3 (06:34→20:59)
[2017-09-02] MEDS: INSULIN ASPART 300 UNIT/3 ML PEN SUBQ SCH ×4 (08:27→20:58)
[2017-09-02] MEDS: metFORMIN 500 MG TABLET PO SCH ×2 (08:27→17:41)
[2017-09-02] MEDS: POTASSIUM CHLORIDE 20 MEQ TABLET PO SCH (08:28)
[2017-09-02] MEDS ORDERED: SPIRONOLACTONE 25 MG TABLET PO SCH (09:00)
[2017-09-02] MEDS ORDERED: LISINOPRIL 20 MG TABLET PO SCH ×2 (09:00)
[2017-09-02] MEDS: diltiaZEM CD 180 MG CAPSULE PO SCH (09:16)
[2017-09-02] MEDS: CARVEDILOL 3.125 MG TABLET PO SCH (09:16)
[2017-09-02] MEDS: DULoxetine 30 MG CAPSULE PO SCH (09:17)
[2017-09-02] MEDS: MULTIVITAMIN TABLET PO SCH (09:18)
--- NOTE | 2017-09-02 12:27 | PROVIDER PROGRESS NOTE ---
Assessment/Plan - Problem List (1) Atrial fibrillation with RVR Assessment/Plan: Better HR control on adjusted HR slowing meds. Continue these and asses HR with ambulation. Pt will be transferred outof ICU to [facility] on Telemetry. (2) Congestive heart failure Qualifiers: Congestive heart failure type: unspecified Congestive heart failure chronicity: acute Qualified Code(s): I50.9 - Heart failure, unspecified Assessment/Plan: Continue present meds. Assess O2 sat with ambulation with RT tomorrow, for home O2 need possibly. (3) Hypertension Assessment/Plan: BI being decreased further to allow for HR slowing meds, due to dropping BP. (5) Diabetes Qualifiers: Diabetes mellitus type: type 2 Assessment/Plan: Continue present diet and Insulin coverage. - Current Meds Current Meds: Current Medications Generic Name Dose Route Start Last Admin Trade Name Freq PRN Reason Stop Dose Admin Atorvastatin Calcium 20 mg 08/30/17 21:00 09/01/17 20:40 Lipitor PO 20 mg QPM SHERWIN Administration Carvedilol 6.25 mg 09/01/17 16:00 09/02/17 09:16 Coreg PO 6.25 mg BID SHERWIN Administration Diltiazem HCl 360 mg 09/02/17 09:00 09/02/17 09:16 Cardizem Cd PO 360 mg DAILY SHERWIN Administration Duloxetine HCl 30 mg 08/31/17 09:00 09/02/17 09:17 Cymbalta PO 30 mg DAILY SHERWIN Administration Furosemide 40 mg 09/02/17 09:00 09/02/17 09:17 Lasix Inj 20mg Vial IVP 40 mg BIDDIURETIC SHERWIN Administration Gabapentin 600 mg 08/30/17 21:00 09/01/17 20:41 Neurontin PO 600 mg QPM SHERWIN Administration Insulin Aspart 2 - 10 unit 08/31/17 11:46 09/02/17 12:18 Novolog SUBQ 2 unit 0800,1200,1700,2100 SHERWIN Administration Protocol Insulin Glargine 5 unit 08/30/17 21:00 09/01/17 20:42 Lantus Solostar SUBQ 5 unit QPM SHERWIN Administration Levothyroxine Sodium 75 mcg 08/31/17 07:00 09/02/17 06:34 Synthroid PO 75 mcg QDAC SHERWIN Administration Lisinopril 5 mg 09/02/17 09:00 09/02/17 09:17 Zestril PO 5 mg DAILY SHERWIN Administration Metformin HCl 500 mg 08/31/17 08:00 09/02/17 08:27 Glucophage PO 500 mg BIDWM SHERWIN Administration Metoprolol Tartrate 2.5 mg 09/01/17 12:23 09/01/17 17:28 Lopressor Inj IVP 2.5 mg Q4H PRN Administration Tachycardia Mineral Oil 1 applic 09/01/17 10:30 09/01/17 11:51 Cavilon TOP 1 applic PRN PRN Administration Skin Care Multivitamins 1 tab 08/31/17 09:00 09/02/17 09:18 Theragran PO 1 tab DAILY SHERWIN Administration Pantoprazole Sodium 40 mg 08/31/17 07:00 09/02/17 06:34 Protonix PO 40 mg BIDAC SHERWIN Administration Potassium Chloride 20 meq 08/31/17 08:00 09/02/17 08:28 K-Dur PO 20 meq DAILYWM SHERWIN Administration Rivaroxaban 20 mg 08/31/17 17:00 09/01/17 16:57 Xarelto PO 20 mg 1700 SHERWIN Administration Sodium Chloride 10 ml 08/30/17 22:00 09/02/17 06:34 Normal Saline Flush 0.9% IVP 10 ml Q8HR SHERWIN Administration Sodium Chloride 10 ml 08/30/17 19:21 09/01/17 17:33 Normal Saline Flush 0.9% IVP 10 ml PRN PRN Administration NEEDED PER PROVIDER ORDERS Spironolactone 25 mg 09/02/17 09:00 09/02/17 09:18 Aldactone PO 25 mg DAILY SHERWIN Administration - Lab Result Fish Bone Diagrams: 08/30/17 13:40 09/02/17 04:51 - Additional Planning My Orders: My Active Orders 09/01/17 12:23 Metoprolol Inj [Lopressor Inj] 2.5 mg IVP Q4H PRN 09/01/17 16:00 Carvedilol [Coreg] 6.25 mg PO BID 09/02/17 Evaluate and Treat OT [OT] Routine Evaluate and Treat PT [PT] Routine 09/02/17 09:00 FUROSEMIDE INJ 20mg VIAL [LASIX INJ 20mg VIAL] 40 mg IVP BIDDIURETIC Lisinopril [Zestril] 5 mg PO DAILY Spironolactone [Aldactone] 25 mg PO DAILY diltiaZEM CD [Cardizem Cd] 360 mg PO DAILY 09/02/17 09:18 Transfer [Admit \\ Transfer \\ Status] [RC] .ONCE 09/02/17 09:21 Oxygen Desat. Study w/Exercise [RC] .ONCE Subjective - Subjective Patient Reports: Feeling Better, Resting Comfortably Nursing Reports: Other (Pt was able to walk with PT only 40-50 feet and was "tired", not SOB. O2 sat remained 92-95% on R.A.) Objective Vital Signs: Vital Signs - 24 hr 09/01/17 09/01/17 09/01/17 12:27 12:56 13:00 Temperature Heart Rate [ Activity] Heart Rate [ 149 H 84 Monitoring electrodes] Heart Rate [ Sitting] Respiratory 24 Rate Respiratory Rate [With Activity] Blood Pressure 123/93 H 100/84 H Blood Pressure [Activity] Blood Pressure 104/84 H [Left Brachial artery] Blood Pressure [Right Brachial artery] O2 Saturation 98 O2 Saturation [ With Activity] 09/01/17 09/01/17 09/01/17 15:41 17:28 17:58 Temperature Heart Rate [ Activity] Heart Rate [ 78 Monitoring electrodes] Heart Rate [ Sitting] Respiratory 25 H Rate Respiratory Rate [With Activity] Blood Pressure 135/98 H 113/74 Blood Pressure [Activity] Blood Pressure 119/79 [Left Brachial artery] Blood Pressure [Right Brachial artery] O2 Saturation 97 O2 Saturation [ With Activity] 09/01/17 09/02/17 09/02/17 19:55 00:11 02:05 Temperature 97.6 C H Heart Rate [ Activity] Heart Rate [ 74 75 72 Monitoring electrodes] Heart Rate [ Sitting] Respiratory 26 H 22 Rate Respiratory Rate [With Activity] Blood Pressure Blood Pressure [Activity] Blood Pressure 116/84 H 84/62 L 89/63 L [Left Brachial artery] Blood Pressure [Right Brachial artery] O2 Saturation 98 92 O2 Saturation [ With Activity] 09/02/17 09/02/17 09/02/17 02:06 05:00 06:35 Temperature 36.1 C L 36.2 C L Heart Rate [ Activity] Heart Rate [ 71 78 Monitoring electrodes] Heart Rate [ Sitting] Respiratory 26 H Rate Respiratory Rate [With Activity] Blood Pressure Blood Pressure [Activity] Blood Pressure 109/87 H 114/75 [Left Brachial artery] Blood Pressure [Right Brachial artery] O2 Saturation 98 O2 Saturation [ With Activity] 09/02/17 09/02/17 09:30 11:07 Temperature 97.8 C H Heart Rate [ 126 H Activity] Heart Rate [ 102 H Monitoring electrodes] Heart Rate [ 80 Sitting] Respiratory 22 Rate Respiratory 16 Rate [With Activity] Blood Pressure Blood Pressure 118/73 [Activity] Blood Pressure [Left Brachial artery] Blood Pressure 118/73 [Right Brachial artery] O2 Saturation 96 O2 Saturation [ 92 With Activity] Oxygen O2 Source [With Activity] Room air O2 Source Nasal cannula I&O (Last 24 Hrs): Intake and Output Totals x24h 08/31/17 09/01/17 09/02/17 23:59 23:59 23:59 Intake Total 1397.839 9861 1200 Output Total 1350 840 700 Balance 575.087 420 500 General: Alert HEENT: Mucous membr. moist/pink Neck: No JVD Cardiovascular: No murmurs Respiratory: No respiratory distress Abdomen: Soft Extremities: No edema - Results Results: Laboratory Results WBC 4.7 x10^3/uL (4.8-10.8) L 08/30/17 13:40 RBC 4.31 10^6/uL (4.20-5.40) 08/30/17 13:40 Hgb 13.3 g/dL (12.0-16.0) 08/30/17 13:40 Hct 38.9 % (37.0-47.0) 08/30/17 13:40 MCV 90.4 fL (81.0-99.0) 08/30/17 13:40 MCH 30.9 pg (27.0-31.0) 08/30/17 13:40 MCHC 34.1 g/dL (32.0-36.0) 08/30/17 13:40 RDW 13.1 % (12.0-15.0) 08/30/17 13:40 Plt Count 227 10^3/uL (130-450) 08/30/17 13:40 MPV 8.7 fL (7.9-10.8) 08/30/17 13:40 Neut # 3.1 10^3/uL (1.5-6.6) 08/30/17 13:40 Lymph # 0.7 10^3/uL (1.5-3.5) L 08/30/17 13:40 [place] # 0.8 10^3/uL (0.0-1.0) 08/30/17 13:40 Eos # 0.0 10^3/uL (0.0-0.7) 08/30/17 13:40 Baso # 0.1 10^3/uL (0.0-0.1) 08/30/17 13:40 Absolute Nucleated RBC 0.00 x10^3/uL 08/30/17 13:40 Nucleated RBC % 0.0 /100WBC 08/30/17 13:40 Sodium 131 mmol/L (135-145) L 09/02/17 04:51 Potassium 4.5 mmol/L (3.5-5.0) 09/02/17 04:51 Chloride 92 mmol/L (101-111) L 09/02/17 04:51 Carbon Dioxide 27 mmol/L (21-32) 09/02/17 04:51 Anion Gap 12.0 (6-13) 09/02/17 04:51 BUN 29 mg/dL (6-20) H 09/02/17 04:51 Creatinine 0.6 mg/dL (0.4-1.0) 09/02/17 04:51 Estimated GFR (MDRD) 96 (>89) 09/02/17 04:51 Glucose 154 mg/dL (70-100) H 09/02/17 04:51 POC Whole Bld Glucose 180 mg/dL (70 - 100) H 09/02/17 11:24 Glycated Hemoglobin 8.1 % (4.6-6.2) H 08/30/17 19:52 Estim Average Glucose 186 (70-100) H 08/30/17 19:52 Calcium 8.4 mg/dL (8.5-10.3) L 09/02/17 04:51 Phosphorus 3.9 mg/dL (2.5-4.6) 08/30/17 19:38 Magnesium 1.7 mg/dL (1.7-2.8) 09/01/17 03:58 Total Bilirubin 0.8 mg/dL (0.2-1.0) 08/30/17 13:40 AST 23 IU/L (10-42) 08/30/17 13:40 ALT 16 IU/L (10-60) 08/30/17 13:40 Alkaline Phosphatase 65 IU/L (42-121) 08/30/17 13:40 Troponin I < 0.04 ng/mL (<0.49) 08/31/17 06:23 B-Natriuretic Peptide 478 pg/mL (5-100) H 09/01/17 03:58 Total Protein 7.0 g/dL (6.7-8.2) 08/30/17 13:40 Albumin 3.6 g/dL (3.2-5.5) 08/30/17 13:40 Globulin 3.4 g/dL (2.1-4.2) 08/30/17 13:40 Albumin/Globulin Ratio 1.1 (1.0-2.2) 08/30/17 13:40 Triglycerides 63 mg/dL (-149) 09/02/17 04:51 Cholesterol 101 mg/dL (-199) 09/02/17 04:51 LDL Cholesterol, Calc 56 mg/dL (-129) 09/02/17 04:51 VLDL Cholesterol 13 mg/dL 09/02/17 04:51 HDL Cholesterol 32 mg/dL (60-) L 09/02/17 04:51 LDL/HDL Ratio 1.8 (<4.4) 09/02/17 04:51 Cholesterol/HDL Ratio 3.2 (<4.4) 09/02/17 04:51 Lipase 15 U/L (22-51) L 08/30/17 13:40 TSH 3.95 uIU/mL (0.34-5.60) 09/02/17 04:51 Urine Color DARK YELLOW 08/30/17 16:30 Urine Clarity CLEAR (CLEAR) 08/30/17 16:30 Urine pH 6.0 PH (5.0-7.5) 08/30/17 16:30 Ur Specific [place] 1.025 (1.002-1.030) 08/30/17 16:30 Urine Protein 30 mg/dL (NEGATIVE) H 08/30/17 16:30 Urine Glucose (UA) NEGATIVE mg/dL (NEGATIVE) 08/30/17 16:30 Urine Ketones NEGATIVE mg/dL (NEGATIVE) 08/30/17 16:30 Urine Occult Blood TRACE-INTA (NEGATIVE) 08/30/17 16:30 Urine Nitrite NEGATIVE (NEGATIVE) 08/30/17 16:30 Urine Bilirubin NEGATIVE (NEGATIVE) 08/30/17 16:30 Urine Urobilinogen 1 (NORMAL) E.U./dL (NORMAL) 08/30/17 16:30 Ur Leukocyte Esterase NEGATIVE (NEGATIVE) 08/30/17 16:30 Urine RBC 0-5 /HPF (0-5) 08/30/17 16:30 Urine WBC 0-3 /HPF (0-5) 08/30/17 16:30 Ur Squamous Epith Cells MANY Squamous (<= Few) H 08/30/17 16:30 Urine Bacteria Moderate /HPF (None Seen) H 08/30/17 16:30 Ur Microscopic Review INDICATED 08/30/17 16:30 Urine Culture Comments NOT INDICATED 08/30/17 16:30 - Procedures Procedures: Procedures CATARAC PHACOEMULS/ASPIR (06/04/14) INSERT LENS AT CATAR EXT (06/04/14) RESECTION OF GALLBLADDER, PERCUTANEOUS ENDOSCOPIC APPROACH (07/16/16)
[2017-09-02] MEDS ORDERED: SODIUM CHLORIDE 0.9% 500 ML IV ONE (15:59)
[2017-09-02] MEDS: RIVAROXABAN 10 MG TABLET PO SCH (17:39)
[2017-09-02] MEDS: ATORVASTATIN 10 MG TABLET PO SCH (20:57)
[2017-09-02] MEDS: INSULIN GLARGINE 300 UNIT/3 ML PEN SUBQ SCH (20:58)
[2017-09-02] MEDS: GABAPENTIN 300 MG CAPSULE PO SCH (20:58)
[2017-09-03 05:23] LABS: CALCIUM 8.5 mg/dL (8.5-10.3); CREATININE 0.5 mg/dL (0.4-1.0)
[2017-09-03] MEDS: PANTOPRAZOLE 40 MG TABLET PO SCH ×2 (06:47→16:25)
[2017-09-03] MEDS: LEVOTHYROXINE 75 MCG TABLET PO SCH (06:47)
[2017-09-03] MEDS: SODIUM CHLORIDE FLUSH 0.9% 10 ML SYRINGE IVP SCH ×3 (06:48→20:20)
[2017-09-03] MEDS: POTASSIUM CHLORIDE 20 MEQ TABLET PO SCH (08:20)
[2017-09-03] MEDS: metFORMIN 500 MG TABLET PO SCH ×2 (08:25→17:45)
[2017-09-03] MEDS: INSULIN ASPART 300 UNIT/3 ML PEN SUBQ SCH ×4 (08:25→20:21)
[2017-09-03] MEDS: diltiaZEM CD 180 MG CAPSULE PO SCH (08:35)
[2017-09-03] MEDS: MULTIVITAMIN TABLET PO SCH (08:35)
[2017-09-03] MEDS: DULoxetine 30 MG CAPSULE PO SCH (08:35)
[2017-09-03] MEDS: SPIRONOLACTONE 25 MG TABLET PO SCH (08:36)
--- NOTE | 2017-09-03 12:35 | PROVIDER PROGRESS NOTE ---
Assessment/Plan - Problem List (1) Atrial fibrillation with RVR Assessment/Plan: Rate in 100's since med doses were decreased. Will adjust doses. Transfer out of ICU to [facility] on Telemetry and assess HR with activity. (2) Congestive heart failure Qualifiers: Congestive heart failure type: unspecified Congestive heart failure chronicity: acute Qualified Code(s): I50.9 - Heart failure, unspecified Assessment/Plan: I suspect she is more SOB because med doses were decreased yesterday due to low BP (and patient was kept in ICU). Will increase diuretics back up. Slow weaning of supplemental O2 as allowed with oximetry. (3) Hypertension Assessment/Plan: Stable BP on current meds (4) Diabetes Qualifiers: Diabetes mellitus type: type 2 Assessment/Plan: Stable glu checks. Continue present diet and Insulin orders. - Current Meds Current Meds: Current Medications Generic Name Dose Route Start Last Admin Trade Name Freq PRN Reason Stop Dose Admin Atorvastatin Calcium 20 mg 08/30/17 21:00 09/02/17 20:57 Lipitor PO 20 mg QPM SHERWIN Administration Diltiazem HCl 360 mg 09/02/17 09:00 09/03/17 08:35 Cardizem Cd PO 360 mg DAILY SHERWIN Administration Duloxetine HCl 30 mg 08/31/17 09:00 09/03/17 08:35 Cymbalta PO 30 mg DAILY SHERWIN Administration Gabapentin 600 mg 08/30/17 21:00 09/02/17 20:58 Neurontin PO 600 mg QPM SHERWIN Administration Insulin Aspart 2 - 10 unit 08/31/17 11:46 09/03/17 08:25 Novolog SUBQ 2 unit 0800,1200,1700,2100 SHERWIN Administration Protocol Insulin Glargine 5 unit 08/30/17 21:00 09/02/17 20:58 Lantus Solostar SUBQ 5 unit QPM SHERWIN Administration Levothyroxine Sodium 75 mcg 08/31/17 07:00 09/03/17 06:47 Synthroid PO 75 mcg QDAC SHERWIN Administration Metformin HCl 500 mg 08/31/17 08:00 09/03/17 08:25 Glucophage PO 500 mg BIDWM SHERWIN Administration Metoprolol Tartrate 2.5 mg 09/01/17 12:23 09/01/17 17:28 Lopressor Inj IVP 2.5 mg Q4H PRN Administration Tachycardia Mineral Oil 1 applic 09/01/17 10:30 09/01/17 11:51 Cavilon TOP 1 applic PRN PRN Administration Skin Care Multivitamins 1 tab 08/31/17 09:00 09/03/17 08:35 Theragran PO 1 tab DAILY SHERWIN Administration Pantoprazole Sodium 40 mg 08/31/17 07:00 09/03/17 06:47 Protonix PO 40 mg BIDAC SEHRWIN Administration Potassium Chloride 20 meq 08/31/17 08:00 09/03/17 08:20 K-Dur PO 20 meq DAILYWM SHERWIN Administration Rivaroxaban 20 mg 08/31/17 17:00 09/02/17 17:39 Xarelto PO 20 mg 1700 SHERWIN Administration Sodium Chloride 10 ml 08/30/17 22:00 09/03/17 06:48 Normal Saline Flush 0.9% IVP 10 ml Q8HR SHERWIN Administration Sodium Chloride 10 ml 08/30/17 19:21 09/01/17 17:33 Normal Saline Flush 0.9% IVP 10 ml PRN PRN Administration NEEDED PER PROVIDER ORDERS Spironolactone 12.5 mg 09/03/17 09:00 09/03/17 08:36 Aldactone PO 12.5 mg DAILY SHERWIN Administration - Lab Result Fish Bone Diagrams: 08/30/17 13:40 09/03/17 04:38 - Additional Planning My Orders: My Active Orders 09/03/17 09:00 Spironolactone [Aldactone] 12.5 mg PO DAILY 09/03/17 11:11 Transfer [Admit \ Transfer \ Status] [RC] .ONCE Subjective - Subjective Patient Reports: Shortness of Breath Nursing Reports: Other (O2 sat 87% on R.A. Pt was able to walk a little further today. O2 sat on 1L n.c. remained in the 90's at 92-93%.) Objective Vital Signs: Vital Signs - 24 hr 09/02/17 09/02/17 09/02/17 13:00 14:56 15:54 Temperature 36.4 C L 97.6 C H Heart Rate [ 72 56 L 59 L Monitoring electrodes] Respiratory 28 H 29 H 20 Rate Blood Pressure 88/61 L 78/54 L 89/63 L [Right Brachial artery] O2 Saturation 96 96 97 09/02/17 09/02/17 09/03/17 18:00 20:55 03:34 Temperature 36.4 C L Heart Rate [ 61 73 64 Monitoring electrodes] Respiratory 27 H 28 H 16 Rate Blood Pressure 108/64 118/76 112/65 [Right Brachial artery] O2 Saturation 94 96 94 09/03/17 09/03/17 09/03/17 05:00 07:00 11:00 Temperature 97.6 C H 36.6 C Heart Rate [ 69 77 81 Monitoring electrodes] Respiratory 14 24 30 H Rate Blood Pressure 122/77 100/78 149/79 H [Right Brachial artery] O2 Saturation 95 96 96 Oxygen O2 Source [With Activity] Room air O2 Source Nasal cannula I&O (Last 24 Hrs): Intake and Output Totals x24h 09/01/17 09/02/17 09/03/17 23:59 23:59 23:59 Intake Total 1260 2150 400 Output Total 840 1050 725 Balance 420 1100 -325 General: Alert, Oriented x3 HEENT: Mucous membr. moist/pink Neck: No JVD Neuro: Non Focal Cardiovascular: No murmurs Respiratory: Other (Prolonged expiratory phase) Abdomen: Soft Extremities: No edema - Results Results: Laboratory Results WBC 4.7 x10^3/uL (4.8-10.8) L 08/30/17 13:40 RBC 4.31 10^6/uL (4.20-5.40) 08/30/17 13:40 Hgb 13.3 g/dL (12.0-16.0) 08/30/17 13:40 Hct 38.9 % (37.0-47.0) 08/30/17 13:40 MCV 90.4 fL (81.0-99.0) 08/30/17 13:40 MCH 30.9 pg (27.0-31.0) 08/30/17 13:40 MCHC 34.1 g/dL (32.0-36.0) 08/30/17 13:40 RDW 13.1 % (12.0-15.0) 08/30/17 13:40 Plt Count 227 10^3/uL (130-450) 08/30/17 13:40 MPV 8.7 fL (7.9-10.8) 08/30/17 13:40 Neut # 3.1 10^3/uL (1.5-6.6) 08/30/17 13:40 Lymph # 0.7 10^3/uL (1.5-3.5) L 08/30/17 13:40 [place] # 0.8 10^3/uL (0.0-1.0) 08/30/17 13:40 Eos # 0.0 10^3/uL (0.0-0.7) 08/30/17 13:40 Baso # 0.1 10^3/uL (0.0-0.1) 08/30/17 13:40 Absolute Nucleated RBC 0.00 x10^3/uL 08/30/17 13:40 Nucleated RBC % 0.0 /100WBC 08/30/17 13:40 Sodium 132 mmol/L (135-145) L 09/03/17 04:38 Potassium 4.2 mmol/L (3.5-5.0) 09/03/17 04:38 Chloride 91 mmol/L (101-111) L 09/03/17 04:38 Carbon Dioxide 28 mmol/L (21-32) 09/03/17 04:38 Anion Gap 13.0 (6-13) 09/03/17 04:38 BUN 27 mg/dL (6-20) H 09/03/17 04:38 Creatinine 0.5 mg/dL (0.4-1.0) 09/03/17 04:38 Estimated GFR (MDRD) 118 (>89) 09/03/17 04:38 Glucose 137 mg/dL (70-100) H 09/03/17 04:38 POC Whole Bld Glucose 205 mg/dL (70 - 100) H 09/03/17 11:44 Glycated Hemoglobin 8.1 % (4.6-6.2) H 08/30/17 19:52 Estim Average Glucose 186 (70-100) H 08/30/17 19:52 Calcium 8.5 mg/dL (8.5-10.3) 09/03/17 04:38 Phosphorus 3.9 mg/dL (2.5-4.6) 08/30/17 19:38 Magnesium 1.7 mg/dL (1.7-2.8) 09/01/17 03:58 Total Bilirubin 0.8 mg/dL (0.2-1.0) 08/30/17 13:40 AST 23 IU/L (10-42) 08/30/17 13:40 ALT 16 IU/L (10-60) 08/30/17 13:40 Alkaline Phosphatase 65 IU/L (42-121) 08/30/17 13:40 Troponin I < 0.04 ng/mL (<0.49) 08/31/17 06:23 B-Natriuretic Peptide 478 pg/mL (5-100) H 09/01/17 03:58 Total Protein 7.0 g/dL (6.7-8.2) 08/30/17 13:40 Albumin 3.6 g/dL (3.2-5.5) 08/30/17 13:40 Globulin 3.4 g/dL (2.1-4.2) 08/30/17 13:40 Albumin/Globulin Ratio 1.1 (1.0-2.2) 08/30/17 13:40 Triglycerides 63 mg/dL (-149) 09/02/17 04:51 Cholesterol 101 mg/dL (-199) 09/02/17 04:51 LDL Cholesterol, Calc 56 mg/dL (-129) 09/02/17 04:51 VLDL Cholesterol 13 mg/dL 09/02/17 04:51 HDL Cholesterol 32 mg/dL (60-) L 09/02/17 04:51 LDL/HDL Ratio 1.8 (<4.4) 09/02/17 04:51 Cholesterol/HDL Ratio 3.2 (<4.4) 09/02/17 04:51 Lipase 15 U/L (22-51) L 08/30/17 13:40 TSH 3.95 uIU/mL (0.34-5.60) 09/02/17 04:51 Urine Color DARK YELLOW 08/30/17 16:30 Urine Clarity CLEAR (CLEAR) 08/30/17 16:30 Urine pH 6.0 PH (5.0-7.5) 08/30/17 16:30 Ur Specific [place] 1.025 (1.002-1.030) 08/30/17 16:30 Urine Protein 30 mg/dL (NEGATIVE) H 08/30/17 16:30 Urine Glucose (UA) NEGATIVE mg/dL (NEGATIVE) 08/30/17 16:30 Urine Ketones NEGATIVE mg/dL (NEGATIVE) 08/30/17 16:30 Urine Occult Blood TRACE-INTA (NEGATIVE) 08/30/17 16:30 Urine Nitrite NEGATIVE (NEGATIVE) 08/30/17 16:30 Urine Bilirubin NEGATIVE (NEGATIVE) 08/30/17 16:30 Urine Urobilinogen 1 (NORMAL) E.U./dL (NORMAL) 08/30/17 16:30 Ur Leukocyte Esterase NEGATIVE (NEGATIVE) 08/30/17 16:30 Urine RBC 0-5 /HPF (0-5) 08/30/17 16:30 Urine WBC 0-3 /HPF (0-5) 08/30/17 16:30 Ur Squamous Epith Cells MANY Squamous (<= Few) H 08/30/17 16:30 Urine Bacteria Moderate /HPF (None Seen) H 08/30/17 16:30 Ur Microscopic Review INDICATED 08/30/17 16:30 Urine Culture Comments NOT INDICATED 08/30/17 16:30 - Procedures Procedures: Procedures CATARAC PHACOEMULS/ASPIR (06/04/14) INSERT LENS AT CATAR EXT (06/04/14) RESECTION OF GALLBLADDER, PERCUTANEOUS ENDOSCOPIC APPROACH (07/16/16)
[2017-09-03] MEDS: METOPROLOL SUCCINATE 25 MG TABLET PO SCH (13:23)
[2017-09-03] MEDS: FUROSEMIDE 20 MG TABLET PO SCH (15:06)
[2017-09-03] MEDS: RIVAROXABAN 10 MG TABLET PO SCH (17:45)
[2017-09-03] MEDS: GABAPENTIN 300 MG CAPSULE PO SCH (20:19)
[2017-09-03] MEDS: INSULIN GLARGINE 300 UNIT/3 ML PEN SUBQ SCH (20:20)
[2017-09-03] MEDS: ATORVASTATIN 10 MG TABLET PO SCH (20:20)
[2017-09-03] MEDS ORDERED: ONDANSETRON ODT 4 MG TABLET TL PRN (22:08)
[2017-09-04] MEDS: oxyCODONE 5 MG TABLET PO PRN (05:57)
[2017-09-04] MEDS: SODIUM CHLORIDE FLUSH 0.9% 10 ML SYRINGE IVP SCH ×3 (05:57→21:31)
[2017-09-04] MEDS: LEVOTHYROXINE 75 MCG TABLET PO SCH (06:54)
[2017-09-04] MEDS: PANTOPRAZOLE 40 MG TABLET PO SCH ×2 (06:55→15:50)
[2017-09-04] MEDS: INSULIN ASPART 300 UNIT/3 ML PEN SUBQ SCH ×4 (08:09→21:30)
[2017-09-04] MEDS: POTASSIUM CHLORIDE 20 MEQ TABLET PO SCH (08:11)
[2017-09-04] MEDS: DULoxetine 30 MG CAPSULE PO SCH (08:11)
[2017-09-04] MEDS: metFORMIN 500 MG TABLET PO SCH ×2 (08:11→17:35)
[2017-09-04] MEDS: SPIRONOLACTONE 25 MG TABLET PO SCH (08:11)
[2017-09-04] MEDS: diltiaZEM CD 180 MG CAPSULE PO SCH (08:12)
[2017-09-04] MEDS: MULTIVITAMIN TABLET PO SCH (08:12)
[2017-09-04] MEDS: METOPROLOL SUCCINATE 25 MG TABLET PO SCH (08:12)
[2017-09-04] MEDS: FUROSEMIDE 20 MG TABLET PO SCH (08:13)
--- NOTE | 2017-09-04 15:51 | PROVIDER PROGRESS NOTE ---
Assessment/Plan - Problem List (1) Atrial fibrillation with RVR Assessment/Plan: HR is controlled. Will decrease Cardizem dose slightly to allow a rise of HR with activity and since Pt feels lightheaded. Continue Xarelto for stroke prophylaxis. (2) Congestive heart failure Qualifiers: Congestive heart failure type: unspecified Congestive heart failure chronicity: acute Qualified Code(s): I50.9 - Heart failure, unspecified Assessment/Plan: LVEF 40-45% by Echo this admission, decrease from 07/15 when it was 55-60%. Lower LVEF is possibly on the basis of prolonged tachycardia (in Afib), but it is not clear if Pt has had a work up for CAD. Pt on Lasix, Spironolactone, and B-john, but no BI or ARB or Nitrates + Hydralazine because of low BP when on B-john and Cardizem, which was needed for rate control. She still is fatigued with ambulation in room and drops her oxygen saturation, thus qualifies for PT, which she wants at a SNF (not [facility] [place]), before returning to her [facility] with/without supplemental O2. (3) Hypertension Assessment/Plan: BP control has not been a problem , due to need for high doses of Cardizem and B -john. (4) Diabetes Qualifiers: Diabetes mellitus type: type 2 Assessment/Plan: Good glu checks on diet and present Insulin doses. - Current Meds Current Meds: Current Medications Generic Name Dose Route Start Last Admin Trade Name Freq PRN Reason Stop Dose Admin Atorvastatin Calcium 20 mg 08/30/17 21:00 09/03/17 20:20 Lipitor PO 20 mg QPM SHERWIN Administration Duloxetine HCl 30 mg 08/31/17 09:00 09/04/17 08:11 Cymbalta PO 30 mg DAILY SHERWIN Administration Furosemide 20 mg 09/03/17 15:00 09/04/17 08:13 Lasix PO 20 mg DAILY SHERWIN Administration Gabapentin 600 mg 08/30/17 21:00 09/03/17 20:19 Neurontin PO 600 mg QPM SHERWIN Administration Insulin Aspart 2 - 10 unit 08/31/17 11:46 09/04/17 12:15 Novolog SUBQ 2 unit 0800,1200,1700,2100 SHERWIN Administration Protocol Insulin Glargine 5 unit 08/30/17 21:00 09/03/17 20:20 Lantus Solostar SUBQ 5 unit QPM SHERWIN Administration Levothyroxine Sodium 75 mcg 08/31/17 07:00 09/04/17 06:54 Synthroid PO 75 mcg QDAC SHERWIN Administration Metformin HCl 500 mg 08/31/17 08:00 09/04/17 08:11 Glucophage PO 500 mg BIDWM SHERWIN Administration Metoprolol Succinate 25 mg 09/03/17 13:00 09/04/17 08:12 Toprol Xl PO 25 mg DAILY SHERWIN Administration Metoprolol Tartrate 2.5 mg 09/01/17 12:23 09/01/17 17:28 Lopressor Inj IVP 2.5 mg Q4H PRN Administration Tachycardia Mineral Oil 1 applic 09/01/17 10:30 09/01/17 11:51 Cavilon TOP 1 applic PRN PRN Administration Skin Care Multivitamins 1 tab 08/31/17 09:00 09/04/17 08:12 Theragran PO 1 tab DAILY SHERWIN Administration Ondansetron HCl 4 mg 09/03/17 22:08 09/04/17 05:56 Zofran Odt TL 4 mg Q4HR PRN Administration Nausea / Vomiting Oxycodone HCl 5 mg 08/30/17 19:21 09/04/17 05:57 Roxicodone PO 5 mg Q4HR PRN Administration Pain 5 to 7 Pantoprazole Sodium 40 mg 08/31/17 07:00 09/04/17 06:55 Protonix PO 40 mg BIDAC SHERWIN Administration Potassium Chloride 20 meq 08/31/17 08:00 09/04/17 08:11 K-Dur PO 20 meq DAILYWM SHERWIN Administration Prochlorperazine Edisylate 10 mg 08/30/17 19:21 09/03/17 21:40 Compazine Inj IVP 10 mg Q6HR PRN Administration Nausea / Vomiting Rivaroxaban 20 mg 08/31/17 17:00 09/03/17 17:45 Xarelto PO 20 mg 1700 SHERWIN Administration Sodium Chloride 10 ml 08/30/17 22:00 09/04/17 12:16 Normal Saline Flush 0.9% IVP 10 ml Q8HR SHERWIN Administration Sodium Chloride 10 ml 08/30/17 19:21 09/01/17 17:33 Normal Saline Flush 0.9% IVP 10 ml PRN PRN Administration NEEDED PER PROVIDER ORDERS Spironolactone 12.5 mg 09/03/17 09:00 09/04/17 08:11 Aldactone PO 12.5 mg DAILY SHERWIN Administration - Lab Result Fish Bone Diagrams: 08/30/17 13:40 09/03/17 04:38 - Additional Planning My Orders: My Active Orders 09/03/17 15:00 Furosemide [Lasix] 20 mg PO DAILY 09/04/17 13:09 Postural [Vital Signs - Orthostatic] [RC] DAILY 09/05/17 09:00 [email or web address] CD [Cardizem Cd] 120 mg PO DAILY Subjective - Subjective Patient Reports: Diarrhea, Other (Lightheaded when walks in room) Nursing Reports: Other (O2 sat at rest 97% on R.A., dropped to 87% with walk in room on R.A.) Objective Vital Signs: Vital Signs - 24 hr 09/03/17 09/03/17 09/04/17 17:54 20:00 00:00 Temperature 36.4 C L 36.6 C 36.6 C Heart Rate [ Brachial] Heart Rate [ 71 78 71 Monitoring electrodes] Heart Rate [ Sitting (After 1 Minute)] Heart Rate [ Standing (After 1 Minute)] Respiratory 19 28 H 15 Rate Blood Pressure 143/84 H 143/89 H 122/81 H [Right Brachial artery] Blood Pressure [Sitting (After 1 Minute)] Blood Pressure [Standing ( After 1 Minute) ] O2 Saturation 94 95 97 09/04/17 09/04/17 09/04/17 04:04 07:22 08:19 Temperature 36.6 C Heart Rate [ 70 Brachial] Heart Rate [ 68 71 Monitoring electrodes] Heart Rate [ Sitting (After 1 Minute)] Heart Rate [ Standing (After 1 Minute)] Respiratory 14 17 18 Rate Blood Pressure 118/69 116/67 [Right Brachial artery] Blood Pressure [Sitting (After 1 Minute)] Blood Pressure [Standing ( After 1 Minute) ] O2 Saturation 95 96 09/04/17 09/04/17 11:15 14:50 Temperature 36.5 C Heart Rate [ 66 Brachial] Heart Rate [ Monitoring electrodes] Heart Rate [ 78 Sitting (After 1 Minute)] Heart Rate [ 60 Standing (After 1 Minute)] Respiratory 16 Rate Blood Pressure 111/79 [Right Brachial artery] Blood Pressure 105/77 [Sitting (After 1 Minute)] Blood Pressure 105/56 L [Standing ( After 1 Minute) ] O2 Saturation 97 Oxygen O2 Source [With Activity] Room air O2 Source Room air I&O (Last 24 Hrs): Intake and Output Totals x24h 09/02/1718 09/04/17 23:59 23:59 23:59 Intake Total 2150 1580 360 Output Total 1050 1225 200 Balance 1100 355 160 - Results Results: Laboratory Results WBC 4.7 x10^3/uL (4.8-10.8) L 08/30/17 13:40 RBC 4.31 10^6/uL (4.20-5.40) 08/30/17 13:40 Hgb 13.3 g/dL (12.0-16.0) 08/30/17 13:40 Hct 38.9 % (37.0-47.0) 08/30/17 13:40 MCV 90.4 fL (81.0-99.0) 08/30/17 13:40 MCH 30.9 pg (27.0-31.0) 08/30/17 13:40 MCHC 34.1 g/dL (32.0-36.0) 08/30/17 13:40 RDW 13.1 % (12.0-15.0) 08/30/17 13:40 Plt Count 227 10^3/uL (130-450) 08/30/17 13:40 MPV 8.7 fL (7.9-10.8) 08/30/17 13:40 Neut # 3.1 10^3/uL (1.5-6.6) 08/30/17 13:40 Lymph # 0.7 10^3/uL (1.5-3.5) L 08/30/17 13:40 [place] # 0.8 10^3/uL (0.0-1.0) 08/30/17 13:40 Eos # 0.0 10^3/uL (0.0-0.7) 08/30/17 13:40 Baso # 0.1 10^3/uL (0.0-0.1) 08/30/17 13:40 Absolute Nucleated RBC 0.00 x10^3/uL 08/30/17 13:40 Nucleated RBC % 0.0 /100WBC 08/30/17 13:40 Sodium 132 mmol/L (135-145) L 09/03/17 04:38 Potassium 4.2 mmol/L (3.5-5.0) 09/03/17 04:38 Chloride 91 mmol/L (101-111) L 09/03/17 04:38 Carbon Dioxide 28 mmol/L (21-32) 09/03/17 04:38 Anion Gap 13.0 (6-13) 09/03/17 04:38 BUN 27 mg/dL (6-20) H 09/03/17 04:38 Creatinine 0.5 mg/dL (0.4-1.0) 09/03/17 04:38 Estimated GFR (MDRD) 118 (>89) 09/03/17 04:38 Glucose 137 mg/dL (70-100) H 09/03/17 04:38 POC Whole Bld Glucose 176 mg/dL (70 - 100) H 09/04/17 11:35 Glycated Hemoglobin 8.1 % (4.6-6.2) H 08/30/17 19:52 Estim Average Glucose 186 (70-100) H 08/30/17 19:52 Calcium 8.5 mg/dL (8.5-10.3) 09/03/17 04:38 Phosphorus 3.9 mg/dL (2.5-4.6) 08/30/17 19:38 Magnesium 1.7 mg/dL (1.7-2.8) 09/01/17 03:58 Total Bilirubin 0.8 mg/dL (0.2-1.0) 08/30/17 13:40 AST 23 IU/L (10-42) 08/30/17 13:40 ALT 16 IU/L (10-60) 08/30/17 13:40 Alkaline Phosphatase 65 IU/L (42-121) 08/30/17 13:40 Troponin I < 0.04 ng/mL (<0.49) 08/31/17 06:23 B-Natriuretic Peptide 478 pg/mL (5-100) H 09/01/17 03:58 Total Protein 7.0 g/dL (6.7-8.2) 08/30/17 13:40 Albumin 3.6 g/dL (3.2-5.5) 08/30/17 13:40 Globulin 3.4 g/dL (2.1-4.2) 08/30/17 13:40 Albumin/Globulin Ratio 1.1 (1.0-2.2) 08/30/17 13:40 Triglycerides 63 mg/dL (-149) 09/02/17 04:51 Cholesterol 101 mg/dL (-199) 09/02/17 04:51 LDL Cholesterol, Calc 56 mg/dL (-129) 09/02/17 04:51 VLDL Cholesterol 13 mg/dL 09/02/17 04:51 HDL Cholesterol 32 mg/dL (60-) L 09/02/17 04:51 LDL/HDL Ratio 1.8 (<4.4) 09/02/17 04:51 Cholesterol/HDL Ratio 3.2 (<4.4) 09/02/17 04:51 Lipase 15 U/L (22-51) L 08/30/17 13:40 TSH 3.95 uIU/mL (0.34-5.60) 09/02/17 04:51 Urine Color DARK YELLOW 08/30/17 16:30 Urine Clarity CLEAR (CLEAR) 08/30/17 16:30 Urine pH 6.0 PH (5.0-7.5) 08/30/17 16:30 Ur Specific Goodwin 1.025 (1.002-1.030) 08/30/17 16:30 Urine Protein 30 mg/dL (NEGATIVE) H 08/30/17 16:30 Urine Glucose (UA) NEGATIVE mg/dL (NEGATIVE) 08/30/17 16:30 Urine Ketones NEGATIVE mg/dL (NEGATIVE) 08/30/17 16:30 Urine Occult Blood TRACE-INTA (NEGATIVE) 08/30/17 16:30 Urine Nitrite NEGATIVE (NEGATIVE) 08/30/17 16:30 Urine Bilirubin NEGATIVE (NEGATIVE) 08/30/17 16:30 Urine Urobilinogen 1 (NORMAL) E.U./dL (NORMAL) 08/30/17 16:30 Ur Leukocyte Esterase NEGATIVE (NEGATIVE) 08/30/17 16:30 Urine RBC 0-5 /HPF (0-5) 08/30/17 16:30 Urine WBC 0-3 /HPF (0-5) 08/30/17 16:30 Ur Squamous Epith Cells MANY Squamous (<= Few) H 01/31/18 16:30 Urine Bacteria Moderate /HPF (None Seen) H 08/30/17 16:30 Ur Microscopic Review INDICATED 08/30/17 16:30 Urine Culture Comments NOT INDICATED 08/30/17 16:30 - Procedures Procedures: Procedures CATARAC PHACOEMULS/ASPIR (06/04/14) INSERT LENS AT CATAR EXT (06/04/14) RESECTION OF GALLBLADDER, PERCUTANEOUS ENDOSCOPIC APPROACH (07/16/16)
[2017-09-04] MEDS: RIVAROXABAN 10 MG TABLET PO SCH (17:21)
[2017-09-04] MEDS: INSULIN GLARGINE 300 UNIT/3 ML PEN SUBQ SCH (21:30)
[2017-09-04] MEDS: GABAPENTIN 300 MG CAPSULE PO SCH (21:30)
[2017-09-04] MEDS: ATORVASTATIN 10 MG TABLET PO SCH (21:30)
[2017-09-05] MEDS: LEVOTHYROXINE 75 MCG TABLET PO SCH (06:23)
[2017-09-05] MEDS: SODIUM CHLORIDE FLUSH 0.9% 10 ML SYRINGE IVP SCH ×3 (06:23→20:37)
[2017-09-05] MEDS: PANTOPRAZOLE 40 MG TABLET PO SCH ×2 (06:23→17:25)
[2017-09-05] MEDS: INSULIN ASPART 300 UNIT/3 ML PEN SUBQ SCH ×4 (08:46→20:34)
[2017-09-05] MEDS: diltiaZEM CD 120 MG CAPSULE PO SCH (08:46)
[2017-09-05] MEDS: SODIUM CHLORIDE FLUSH 0.9% 10 ML SYRINGE IVP PRN (08:46)
[2017-09-05] MEDS: METOPROLOL SUCCINATE 25 MG TABLET PO SCH (08:47)
[2017-09-05] MEDS: MULTIVITAMIN TABLET PO SCH (08:47)
[2017-09-05] MEDS: POTASSIUM CHLORIDE 20 MEQ TABLET PO SCH (08:48)
[2017-09-05] MEDS: FUROSEMIDE 20 MG TABLET PO SCH (08:48)
[2017-09-05] MEDS: DULoxetine 30 MG CAPSULE PO SCH (08:48)
[2017-09-05] MEDS: SPIRONOLACTONE 25 MG TABLET PO SCH (08:48)
[2017-09-05] MEDS: metFORMIN 500 MG TABLET PO SCH ×2 (08:50→17:25)
--- NOTE | 2017-09-05 15:53 | PROVIDER PROGRESS NOTE ---
Subjective - Prog Note Date Prog Note Date: 09/05/17 Prog Note Time: 15:51 - Subjective Subjective: she was supposed to have gone to SNF today but her SNF of choice has no beds for a week. She will now need to stay one more day until a bed in a facility she agrees to has a bed. she denies any new sob, cp, cough. Eating well. Current Medications - Current Medications Current Medications: Active Medications Atorvastatin Calcium (Lipitor) 20 mg PO QPM [facility] Last Admin: 09/04/17 21:30 Dose: 20 mg Diltiazem HCl (Cardizem Cd) 120 mg PO DAILY [facility] Last Admin: 09/05/17 08:46 Dose: 120 mg Duloxetine HCl (Cymbalta) 30 mg PO DAILY [facility] Last Admin: 09/05/17 08:48 Dose: 30 mg Furosemide (Lasix) 20 mg PO DAILY [facility] Last Admin: 09/05/17 08:48 Dose: 20 mg Gabapentin (Neurontin) 600 mg PO QPM [facility] Last Admin: 09/04/17 21:30 Dose: 600 mg Insulin Aspart (Novolog) 2 - 10 unit SUBQ 0800,1200,1700,2100 [facility] PRN Reason: Protocol Last Admin: 09/05/17 11:55 Dose: 4 unit Insulin Glargine (Lantus Solostar) 5 unit SUBQ QPM [facility] Last Admin: 09/04/17 21:30 Dose: 5 unit Levothyroxine Sodium (Synthroid) 75 mcg PO QDAC [facility] Last Admin: 09/05/17 06:23 Dose: 75 mcg Lidocaine (Lidoderm Patch) 1 patch TOP DAILY PRN PRN Reason: PAIN Metformin HCl (Glucophage) 500 mg PO BIDWM [facility] Last Admin: 09/05/17 08:50 Dose: 500 mg Metoprolol Succinate (Toprol Xl) 25 mg PO DAILY [facility] Last Admin: 09/05/17 08:47 Dose: 25 mg Metoprolol Tartrate (Lopressor Inj) 2.5 mg IVP Q4H PRN PRN Reason: Tachycardia Last Admin: 09/01/17 17:28 Dose: 2.5 mg Mineral Oil (Cavilon) 1 applic TOP PRN PRN PRN Reason: Skin Care Last Admin: 09/01/17 11:51 Dose: 1 applic Multivitamins (Theragran) 1 tab PO DAILY [facility] Last Admin: 09/05/17 08:47 Dose: 1 tab Ondansetron HCl (Zofran Odt) 4 mg TL Q4HR PRN PRN Reason: Nausea / Vomiting Last Admin: 09/04/17 05:56 Dose: 4 mg Oxycodone HCl (Roxicodone) 5 mg PO Q4HR PRN PRN Reason: Pain 5 to 7 Last Admin: 09/04/17 05:57 Dose: 5 mg Pantoprazole Sodium (Protonix) 40 mg PO BIDAC [facility] Last Admin: 09/05/17 06:23 Dose: 40 mg Potassium Chloride (K-Dur) 20 meq PO DAILYWM [facility] Last Admin: 09/05/17 08:48 Dose: 20 meq Prochlorperazine Edisylate (Compazine Inj) 10 mg IVP Q6HR PRN PRN Reason: Nausea / Vomiting Last Admin: 09/03/17 21:40 Dose: 10 mg Rivaroxaban (Xarelto) 20 mg PO 1700 [facility] Last Admin: 09/04/17 17:21 Dose: 20 mg Sodium Chloride (Normal Saline Flush 0.9%) 10 ml IVP Q8HR [facility] Last Admin: 09/05/17 15:02 Dose: 10 ml Sodium Chloride (Normal Saline Flush 0.9%) 10 ml IVP PRN PRN PRN Reason: NEEDED PER PROVIDER ORDERS Last Admin: 09/05/17 08:46 Dose: 10 ml Spironolactone (Aldactone) 12.5 mg PO DAILY [facility] Last Admin: 09/05/17 08:48 Dose: 12.5 mg Temazepam (Restoril) 15 mg PO QPM PRN PRN Reason: Insomnia Lisinopril 20 mg ORAL DAILY 04/09/14 Rivaroxaban [Xarelto] 20 mg PO 1700 04/09/14 Gabapentin 300 mg PO TID 04/21/16 Levothyroxine [Synthroid] 75 mcg PO QDAC 04/21/16 Hydrocodone/Acetaminophen [Hydrocodon-Acetaminophen 5-325] 1 tab PO Q6H PRN Metformin HCl 500 mg PO BIDWM 09/02/16 Acetaminophen 1,000 mg PO Q8H PRN 08/31/17 Calcium Carbonate [Tums (Calcium Carbonate 500mg)] 500 mg PO Q4H PRN 08/31/17 DULoxetine [Cymbalta] 30 mg PO DAILY 08/31/17 Docusate Sodium 250Mg Capsule [Colace 250Mg Capsule] 250 mg PO BID 08/31/17 Milk Thistle Seed Extract [Milk Thistle] 175 mg PO TID 08/31/17 Multivitamin [Theragran] 1 tab PO DAILY 08/31/17 Ondansetron Odt [Zofran Odt] 4 mg PO Q8H PRN 08/31/17 Polyethylene Glycol 3350 [Miralax] 17 gm PO DAILY 08/31/17 Senna [Senokot] 8.6 mg PO DAILY 08/31/17 Objective - Vital Signs/Intake & Output Vital Signs: Vital Signs x48h Temp Pulse Pulse Pulse Pulse Resp BP 09/05/17 13:00 36.4 C L 77 18 135/77 H 09/05/17 09:47 37.1 C 09/05/17 08:36 95 98 96 09/05/17 08:00 36.8 C 98 18 125/87 H BP BP BP Pulse Ox 09/05/17 13:00 96 09/05/17 09:47 09/05/17 08:36 134/79 H 122/54 L 125/87 H 09/05/17 08:00 93 Intake & Output: Intake & Output 09/02/17 09/03/17 09/04/17 09/05/17 23:59 23:59 23:59 23:59 Intake Total 2150 1580 1160 560 Output Total 1050 1225 201 Balance 1100 355 959 560 - Objective General Appearance: positive: No acute distress, Alert Eyes Bilateral: positive: PERRL ENT: positive: Pharynx nml Neck: positive: Thyroid nml, No JVD. negative: Stiff neck, Carotid bruit Respiratory: positive: Chest non-tender, Rales (at bases but they clear with cough.) Cardiovascular: positive: Regular rate & rhythm, Systolic murmur. negative: Gallop/S4, Friction rub Abdomen: positive: Non-tender, No organomegaly, Nml bowel sounds, No distention Skin: positive: Warm, Dry Extremities: positive: Full ROM, No pedal edema Neurologic/Psychiatric: positive: Oriented x3, CN's nml (2-12), Motor nml - Lab Results Fish Bones: 08/30/17 13:40 02/04/18 04:38 Other Labs: Lab Results x24hrs 09/05/17 09/05/17 09/04/17 Range/Units 11:27 07:40 20:35 POC Whole Bld Glucose 184 H 149 H 187 H (70 - 100) mg/dL 09/04/17 Range/Units 16:49 POC Whole Bld Glucose 190 H (70 - 100) mg/dL Assessment/Plan - Problem List (1) Atrial fibrillation with RVR Impression: HR is controlled. Her uncontrolled heart rate was the reason for admission. This in turn caused #2. Cardizem dose decreased to 120 mg slightly to allow a rise of HR with activity and since Pt feels lightheaded. Change from metoprolol IV prn to po Continue Xarelto for stroke prophylaxis. She is ready for dc today to SNF for rehab since she is weak. But the SNF she wants will not have a bed for a week. Keep one more day and Social Work will try to find another SNF by tomorrow. (2) Congestive heart failure Qualifiers: Congestive heart failure type: unspecified Congestive heart failure chronicity: acute Qualified Code(s): I50.9 - Heart failure, unspecified Assessment/Plan: LVEF 40-45% by Echo this admission, decreased from 07/15 when it was 55-60%. Lower LVEF is possibly on the basis of prolonged tachycardia (in Afib), but it is not clear if Pt has had a work up for CAD. Pt on Lasix, Spironolactone, and B-john, but no BI or ARB or Nitrates + Hydralazine because of low BP when on B-john and Cardizem, which was needed for rate control. She still is fatigued with ambulation in room and drops her oxygen saturation, thus qualifies for PT, which she wants at a SNF (not [facility]), before returning to her [facility] with/without supplemental O2. (3) Hypertension Assessment/Plan: BP control has not been a problem , due to need for high doses of Cardizem and B -john. (4) Diabetes Qualifiers: Diabetes mellitus type: type 2 Assessment/Plan: Good glu checks on diet and present Insulin doses. Glcuose on 09/04 was 165, 176, 190, 187 today she is 149 and 184. No change in insulin or meds.
[2017-09-05] MEDS: RIVAROXABAN 10 MG TABLET PO SCH (17:26)
[2017-09-05] MEDS: ATORVASTATIN 10 MG TABLET PO SCH (20:33)
[2017-09-05] MEDS: GABAPENTIN 300 MG CAPSULE PO SCH (20:33)
[2017-09-05] MEDS: INSULIN GLARGINE 300 UNIT/3 ML PEN SUBQ SCH (20:35)
[2017-09-06] MEDS: LEVOTHYROXINE 75 MCG TABLET PO SCH (06:15)
[2017-09-06] MEDS: PANTOPRAZOLE 40 MG TABLET PO SCH ×2 (06:15→15:59)
[2017-09-06] MEDS: SODIUM CHLORIDE FLUSH 0.9% 10 ML SYRINGE IVP SCH ×3 (06:15→20:54)
[2017-09-06] MEDS: diltiaZEM CD 120 MG CAPSULE PO SCH (08:27)
[2017-09-06] MEDS: metFORMIN 500 MG TABLET PO SCH ×2 (08:27→16:50)
[2017-09-06] MEDS: FUROSEMIDE 20 MG TABLET PO SCH (08:27)
[2017-09-06] MEDS: DULoxetine 30 MG CAPSULE PO SCH (08:27)
[2017-09-06] MEDS: METOPROLOL SUCCINATE 25 MG TABLET PO SCH (08:27)
[2017-09-06] MEDS: MULTIVITAMIN TABLET PO SCH (08:27)
[2017-09-06] MEDS: POTASSIUM CHLORIDE 20 MEQ TABLET PO SCH (08:27)
[2017-09-06] MEDS: POLYETHYLENE GLYCOL 3350 17 GM PACKET PO SCH (08:27)
[2017-09-06] MEDS: SPIRONOLACTONE 25 MG TABLET PO SCH (08:28)
[2017-09-06] MEDS: INSULIN ASPART 300 UNIT/3 ML PEN SUBQ SCH ×4 (08:28→20:52)
--- NOTE | 2017-09-06 15:43 | Discharge Plan ---
"Discharge Plan for SNF / [facility] - DC Plan and Transition Orders Disposition: 03 SNF DC/Xfer Condition: Stable SNF Transition Orders: Admit to: [facility] under the care of Doctor Name Discharge Diagnosis: 1. atrial fib with RVR 2. chronic systolic CHF 3. 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 hyperlipdemia 6. Functional generalized weakness after illness 7. Hypothyroidism 8. chronic diarrhea 9. peripheral neuropathy 10. thoracic vertebral compression fracture with chronic pain Medicare Certification: I certify that Post Hospital care home care is medically necessary on a continuing basis for any of the conditions for which she/he is receiving care during hospitalization. Notify PCP of admission and forward orders to primary provider for signature. Weight on admission and weekly. Call PCP immediately if weight increases by 5 pounds or if patient develops dyspnea, chest pain/tightness or edema. House Bowel Program: yes If no BM after 2 days, nurse may give M.O.M. 30ml PO PRN and /or ducolax Supp 1 [place] and /or KEYLA 250mg P.O., and/or senna 1-2 tabs PO. On day 3 nurse may give repeat above order until residents constipation is resolved. Immunizations: Annual Influenza Vaccine: yes. (between Mar 31 and October 28.) Unless allergy or already given Two-Step PPD: yes per [facility] [id number] or appropriate documentation of approved exceptions Treatments & Other Orders: Oxygen Orders: 2 liter nasal canula to keep 02 sat >92% Lab Tests or X-Rays Orders: Orthopedic Orders: none. Medications: PLEASE REFER TO THE DISCHARGE MEDICATION LIST. Insulin Orders? yes Diagnosis: Diabetes Initiate hypo and hyperglycemia protocols for BG <70 and BG >375. May check BG prn for signs/symptoms of dysglycemia. Frequency of BG checks: AC am, AC meals, HS Basal Insulin: Lantus 100 units / ml inject subq as follows: 7 units SQ qpm [] Other: [] Correction Insulin: - Select the type of insulin below [Choose: Novolog/Humalog]100 units /ml insulin inject subq per orders indicate below [] LOW DOSE [] MODERATE DOSE [X] MODERATE/HIGH DOSE [] HIGH DOSE GB UNITS GB UNITS GB UNITS GB UNITS 61-140 0 UNITS 61-140 0 UNITS 61-140 0 UNITS 61-140 0 UNITS 141-175 1 UNITS 141-175 1 UNITS 141-175 2 UNITS 141-175 3 UNITS 176-225 2 UNITS 176-225 3 UNITS 176-225 4 UNITS 176-225 5 UNITS 226-275 3 UNITS 226-275 5 UNITS 226-275 6 UNITS 226-275 7 UNITS 276-325 4 UNITS 276-325 7 UNITS 276-325 8 UNITS 276-325 9 UNITS 326-375 5 UNITS 326-375 9 UNITS 326-375 10 UNITS 326-375 11 UNITS >375 CONTACT MD >375 CONTACT MD >375 CONTACT MD >375 CONTACT MD Custom Dosing: [Choose: None/Novolog/Humalog] 100 units/ml Insulin inject subq as follows: GB Units 61-140 [] Units 141-175 [] Units 176-225 [] Units 226-275 [] Units 276-325 []Units 326-375 [] Units >375 Contact MD Allergies and Adverse Reactions: Allergies Allergy/AdvReac Type Severity Reaction Status Date / Time No Known Drug Allergies Allergy Verified 08/30/17 13:04 - Medications New Prescriptions: Hydrocodone/Acetaminophen [Vicodin 5-300 mg Tablet] 1 each PO Q4H PRN #30 tablet PRN Reason: Pain - Diet Type: No added sugar Texture: Regular May have monthly special meal: Yes - Therapies | Activity Therapy: Evaluation | Treat if indicated: PT, OT Rehabilitation Potential: Maximize functional status, Return to independent living Activity: Activity as Tolerated Assistance Devices: Walker"
[2017-09-06 16:08] LABS: CALCIUM 8.7 mg/dL (8.5-10.3); CREATININE 0.6 mg/dL (0.4-1.0)
--- NOTE | 2017-09-06 16:09 | PROVIDER PROGRESS NOTE ---
Subjective - Prog Note Date Prog Note Date: 09/06/17 Prog Note Time: 16:06 - Subjective Subjective: she is stable. so yesterday her SNF of choice accepted her but no beds. Today, new SNF accepted her but no beds until am. so here another day. no new complaints. Current Medications - Current Medications Current Medications: Active Medications Atorvastatin Calcium (Lipitor) 20 mg PO QPM [facility] Last Admin: 09/05/17 20:33 Dose: 20 mg Diltiazem HCl (Cardizem Cd) 120 mg PO DAILY [facility] Last Admin: 09/06/17 08:27 Dose: 120 mg Duloxetine HCl (Cymbalta) 30 mg PO DAILY [facility] Last Admin: 09/06/17 08:27 Dose: 30 mg Furosemide (Lasix) 20 mg PO DAILY [facility] Last Admin: 09/06/17 08:27 Dose: 20 mg Gabapentin (Neurontin) 600 mg PO QPM [facility] Last Admin: 09/05/17 20:33 Dose: 600 mg Insulin Aspart (Novolog) 2 - 10 unit SUBQ 0800,1200,1700,2100 [facility] PRN Reason: Protocol Last Admin: 09/06/17 11:57 Dose: 2 unit Insulin Glargine (Lantus Solostar) 5 unit SUBQ QPM [facility] Last Admin: 09/05/17 20:35 Dose: 5 unit Levothyroxine Sodium (Synthroid) 75 mcg PO QDAC [facility] Last Admin: 09/06/17 06:15 Dose: 75 mcg Lidocaine (Lidoderm Patch) 1 patch TOP DAILY PRN PRN Reason: PAIN Metformin HCl (Glucophage) 500 mg PO BIDWM [facility] Last Admin: 09/06/17 08:27 Dose: 500 mg Metoprolol Succinate (Toprol Xl) 25 mg PO DAILY [facility] Last Admin: 09/06/17 08:27 Dose: 25 mg Metoprolol Tartrate (Lopressor Inj) 2.5 mg IVP Q4H PRN PRN Reason: Tachycardia Last Admin: 09/01/17 17:28 Dose: 2.5 mg Mineral Oil (Cavilon) 1 applic TOP PRN PRN PRN Reason: Skin Care Last Admin: 09/01/17 11:51 Dose: 1 applic Multivitamins (Theragran) 1 tab PO DAILY [facility] Last Admin: 09/06/17 08:27 Dose: 1 tab Ondansetron HCl (Zofran Odt) 4 mg TL Q4HR PRN PRN Reason: Nausea / Vomiting Last Admin: 09/04/17 05:56 Dose: 4 mg Oxycodone HCl (Roxicodone) 5 mg PO Q4HR PRN PRN Reason: Pain 5 to 7 Last Admin: 09/04/17 05:57 Dose: 5 mg Pantoprazole Sodium (Protonix) 40 mg PO BIDAC [facility] Last Admin: 09/06/17 15:59 Dose: 40 mg Polyethylene Glycol (Miralax) 17 gm PO DAILY [facility] Last Admin: 09/06/17 08:27 Dose: 17 gm Potassium Chloride (K-Dur) 20 meq PO DAILYWM [facility] Last Admin: 09/06/17 08:27 Dose: 20 meq Prochlorperazine Edisylate (Compazine Inj) 10 mg IVP Q6HR PRN PRN Reason: Nausea / Vomiting Last Admin: 09/03/17 21:40 Dose: 10 mg Rivaroxaban (Xarelto) 20 mg PO 1700 [facility] Last Admin: 09/05/17 17:26 Dose: 20 mg Sodium Chloride (Normal Saline Flush 0.9%) 10 ml IVP Q8HR [facility] Last Admin: 09/06/17 16:00 Dose: 10 ml Sodium Chloride (Normal Saline Flush 0.9%) 10 ml IVP PRN PRN PRN Reason: NEEDED PER PROVIDER ORDERS Last Admin: 09/05/17 08:46 Dose: 10 ml Spironolactone (Aldactone) 12.5 mg PO DAILY [facility] Last Admin: 09/06/17 08:28 Dose: 12.5 mg Temazepam (Restoril) 15 mg PO QPM PRN PRN Reason: Insomnia Hydrocodone/Acetaminophen [Hydrocodon-Acetaminophen 5-325] 1 tab PO Q6H PRN Acetaminophen 1,000 mg PO Q8H PRN 08/31/17 Calcium Carbonate [Tums (Calcium Carbonate 500mg)] 500 mg PO Q4H PRN 08/31/17 Ondansetron Odt [Zofran Odt] 4 mg PO Q8H PRN 08/31/17 Objective - Vital Signs/Intake & Output Reviewed Vital Signs: Yes Vital Signs: Vital Signs x48h Temp Pulse Resp BP Pulse Ox 02/07/18 16:02 36.3 C L 60 20 135/75 H 97 Intake & Output: Intake & Output 09/03/17 09/04/17 09/05/17 09/06/17 23:59 23:59 23:59 23:59 Intake Total 1580 1160 1110 700 Output Total 1225 201 600 Balance 614 412 6508 100 - Objective General Appearance: positive: No acute distress, Alert Eyes Bilateral: positive: PERRL ENT: positive: Pharynx nml Neck: positive: No JVD. negative: Stiff neck, Carotid bruit Respiratory: positive: Chest non-tender. negative: Wheezes, Rales, Rhonchi Cardiovascular: positive: Irregularly irregular, Systolic murmur. negative: Gallop/S4, Friction rub Abdomen: positive: No organomegaly, Nml bowel sounds, No distention Skin: positive: Warm, Dry Neurologic/Psychiatric: positive: CN's nml (2-12), Motor nml (but weak), Disoriented to time, Other (worked with PT today: Pt is a pleasant 82 yo F who was admitted to the hospital with atrial fibrillation and CHF exacerbation, no presenting to physical therapy with decreased independence and tolerance with all functional activities. Today she was able to increase her ambulation distance on 1 L O2, though she required one rest break and exhibits break down in form for transferring with fatigue. After PT session, pt was visably SOB but not dyspneic, HR elevated to 123, and O2 91% on room air. She was on 1L O2 during ambulation, and room air after PT session; O2 sats remained stable throughout activity with PT. Pt will require continued PT 1-2x/day during hospital stay to increase activity tolerance and to progress ambulation to functional distances in a safe manner to reduce her risk of falling.) - Lab Results Fish Bones: 08/30/17 13:40 09/06/17 15:53 Other Labs: Lab Results x24hrs 09/06/17 09/06/17 09/05/17 Range/Units 11:44 07:48 20:19 POC Whole Bld Glucose 174 H 104 H 250 H (70 - 100) mg/dL Assessment/Plan - Problem List (1) Atrial fibrillation with RVR Impression: HR is controlled. Her uncontrolled heart rate was the reason for admission. This in turn caused #2. Cardizem dose decreased to 120 mg slightly to allow a rise of HR with activity and since Pt feels lightheaded. Changed from metoprolol IV prn to po / and doing well. Continue Xarelto for stroke prophylaxis. She is ready for dc today to SNF for rehab since she is weak. But the SNF she wants will not have a bed for a week. Kept one more day and Social Work found another SNF today but they can't take her until tomorrow. (2) Congestive heart failure/chronic systolic Qualifiers: Congestive heart failure type: unspecified Congestive heart failure chronicity: acute Qualified Code(s): I50.9 - Heart failure, unspecified Assessment/Plan: LVEF 40-45% by Echo this admission, decreased from 07/15 when it was 55-60%. Lower LVEF is possibly on the basis of prolonged tachycardia (in Afib), but it is not clear if Pt has had a work up for CAD. Pt on Lasix, Spironolactone, and B-john, but no BI or ARB or Nitrates + Hydralazine because of low BP when on B-john and Cardizem, which was needed for rate control. She still is fatigued with ambulation in room and drops her oxygen saturation, thus qualifies for PT, which she wants at a SNF (not [facility]), before returning to her ASSISTED with/without supplemental O2. Oxymetry check ordered for today. (3) Hypertension Assessment/Plan: BP control has not been a problem , due to need for high doses of Cardizem and B -john. (4) Diabetes Qualifiers: Diabetes mellitus type: type 2 , with complications of neuropathy and HTN, CKD, not on [employer] & online insulin Assessment/Plan: Good glu checks on diet and present Insulin doses. Glcuose on 09/04 was 165, 176, 190, 187 glucose on 09/05 149, 184, 150, 250 today she is 104, 174
[2017-09-06] MEDS: RIVAROXABAN 10 MG TABLET PO SCH (16:50)
[2017-09-06] MEDS: ATORVASTATIN 10 MG TABLET PO SCH (20:52)
[2017-09-06] MEDS: GABAPENTIN 300 MG CAPSULE PO SCH (20:52)
[2017-09-06] MEDS: INSULIN GLARGINE 300 UNIT/3 ML PEN SUBQ SCH (20:54)
[2017-09-07] MEDS: PANTOPRAZOLE 40 MG TABLET PO SCH (06:16)
[2017-09-07] MEDS: LEVOTHYROXINE 75 MCG TABLET PO SCH (06:16)
[2017-09-07] MEDS: oxyCODONE 5 MG TABLET PO PRN (06:16)
[2017-09-07] MEDS: SODIUM CHLORIDE FLUSH 0.9% 10 ML SYRINGE IVP SCH (06:16)
[2017-09-07 07:32] VITALS: BP 141/93
[2017-09-07] MEDS: POLYETHYLENE GLYCOL 3350 17 GM PACKET PO SCH (09:11)
[2017-09-07] MEDS: POTASSIUM CHLORIDE 20 MEQ TABLET PO SCH (09:12)
[2017-09-07] MEDS: MULTIVITAMIN TABLET PO SCH (09:12)
[2017-09-07] MEDS: metFORMIN 500 MG TABLET PO SCH (09:12)
[2017-09-07] MEDS: diltiaZEM CD 120 MG CAPSULE PO SCH (09:12)
[2017-09-07] MEDS: DULoxetine 30 MG CAPSULE PO SCH (09:12)
[2017-09-07] MEDS: METOPROLOL SUCCINATE 25 MG TABLET PO SCH (09:12)
[2017-09-07] MEDS: SPIRONOLACTONE 25 MG TABLET PO SCH (09:12)
[2017-09-07] MEDS: FUROSEMIDE 20 MG TABLET PO SCH (09:12)
[2017-09-07] MEDS: INSULIN ASPART 300 UNIT/3 ML PEN SUBQ SCH (09:13)
--- NOTE | 2017-09-12 10:30 | DISCHARGE SUMMARY ---
Physician: Nilda Ruano MD DATE OF ADMISSION: 08/30/2017 DATE OF DISCHARGE: 09/06/2017 DATE OF ADMISSION: 08/30/2017 DATE OF DISCHARGE: 09/06/2017 PRIMARY CARE PROVIDER: Trenton Norton. DISCHARGE DIAGNOSES 1. Chronic atrial fibrillation with rapid ventricular response. 2. Acute on chronic systolic congestive heart failure. 3. Hypertension. 4. Type 2 diabetes mellitus, uncontrolled, with complications of kidney disease and hypertension, on long-term use of insulin. 5. Chronic pain from thoracic vertebral compression. DISCHARGE MEDICATIONS 1. Acetaminophen 1000 mg every 8 hours as needed for pain. 2. Lipitor 20 mg daily. 3. Calcium carbonate 500 mg p.o. every 4 hours p.r.n. indigestion. 4. Cardizem-CD 120 mg a day. 5. Colace 250 mg p.o. b.i.d. 6. Cymbalta 30 mg daily. 7. Lasix 20 mg daily. 8. Gabapentin 300 mg p.o. t.i.d. 9. Hydrocodone 5 mg with acetaminophen 325 one every 6 hours as needed. 10. Lantus 5 units q.p.m. 11. Synthroid 75 mcg daily. 12. Lidoderm patch to affected area 12 hours out of the day. 13. Lisinopril 20 mg daily. 14. Toprol-XL 25 mg daily. 15. Theragran multivitamin 1 tablet daily. 16. Zofran 4 mg every 8 hours as needed. 17. MiraLax 17 grams daily. 18. Potassium 20 mEq daily. 19. Xarelto 20 mg p.o. daily. 20. Spironolactone 12.5 mg p.o. daily. PRINCIPAL PROCEDURE 1. Chest x-ray 08/30/2017 with increasing density in the left lower lobe since 07/20/2016. Differential included worsening atelectasis, small left pleural effusion, left basilar pneumonia. She has anterior kyphosis secondary to lower thoracic spine wedging compression fracture. 1. Echocardiogram with moderate concentric left ventricular hypertrophy, overall left ventricular systolic function, mild to moderately impaired with ejection fraction of 40% to 45%. Moderate global hypokinesis of LV contractility. Moderate right ventricular enlargement. Right ventricular systolic function mildly impaired. Severe increase in left atrial volume index. Severe right atrial enlargement. Moderate mitral regurgitation. Right ventricular systolic pressure at rest is 36 mmHg. Her aortic root and ascending aorta are dilated to 4.2 cm. HOSPITAL COURSE: The patient is an 82-year-old female who lives at home and has longstanding medical history of hypertension, hyperlipidemia, diabetes mellitus, and chronic atrial fibrillation diagnosed about 1 or 2 years ago. She had some mild chest pain on 08/28/2017 that was self-resolving and attributed it to having exercise aggressively earlier in the day. On the day of admission, the patient began having increasing shortness of breath and felt palpitations, but otherwise denied any other associated symptomatology such as chest pain, nausea, vomiting, or cough. She had no fevers. She came to the emergency room where she was found to have an elevated heart rate in the 150s and elevated BNP. Her chest x-ray showed a left lower lobe hypo-aeration, but was not felt to have pneumonia because she did not have a fever or an elevated white cell count. Despite multiple attempts to reduce her rapid ventricular response in the emergency room, she continued to have a heart rate in the 120s and is admitted to the ICU on diltiazem drip for rate control. Her sodium on admission was 129 and she continued to be mildly hyponatremic throughout her entire stay. Electrolytes were otherwise normal. Her admitting glucose was 197. Her white cell count was normal at 4.7, hemoglobin and hematocrit normal. Urinalysis had proteinuria, but no signs of infection and had many squamous cells. Troponin was less than 0.04. EKG showed extreme tachycardia with a wide complex. The patient was placed on a diltiazem drip in the ICU. After being in the ICU overnight her rate dropped and she was changed to Cardizem-CD. Xarelto was continued for stroke prophylaxis. Her echocardiogram showed a reduction in her ejection fraction from previous echo, but her left ventricular ejection fraction was not less than 35% and it would not require starting Coreg or BI inhibitor. Blood pressure was controlled with her medications. Hyponatremia has been chronic, and although urine sodium was mentioned, it was not done. She is on Cymbalta and while SSRIs are associated with hyponatremia, it is not felt to be due to Cymbalta. Although her rate was controlled, this patient was still very fatigued when she would ambulate in the room. Diabetes was managed with Lantus, low dose, and glucose was in the 140s to 180s during her stay. Once her rate was controlled, it was apparent that the patient was still very fatigued and very weak. Physical therapy evaluated the patient and found her to be able to ambulate 15 feet with a front-wheeled walker and standby assist and contact guard assist using oxygen. Every time she tried to get up, she would get very tachypneic and O2 saturations would drop. Activity tolerance was low. She required verbal cueing for safety for use of front-wheeled walker and posture correction. As such, it was felt that the patient would be an adequate candidate for rehabilitation in a [facility] facility. She was adamant that she did not want to go to [facility] and identified [facility] as the place she wanted to go to. It was felt that she had some acute on chronic systolic congestive heart failure, mainly because of rate control. Once her rate was lowered, she did not need to be diuresed more aggressively. She was felt to have functional generalized weakness after illness, and her pain was controlled with her usual medications. She was discharged in stable condition to get more rehab at [facility]. On the day of discharge, temperature was 36.8, pulse 64, blood pressure 141/93. She was an alert, elderly woman in no acute distress at rest. However, room air at rest was 86%. She needed 2 liters nasal cannula to bring up her O2 saturation to 96% at rest. On 2 liters with exertion, her O2 saturation remained at 95%. As such, the patient is going to go home on 2 liters as well as with the [facility] facility. She had rales at her bases, but they cleared with a deep cough. In spite of her atrial fibrillation history, she had a regular rate and rhythm and a systolic murmur. The abdomen was nontender. The feet had no edema. She was oriented x3, and cranial nerves appeared intact with motor normal, but just generalized weakness from her illness. DISPOSITION: She is transferred to the penitentiary facility in stable condition. TIME SPENT: Greater than 30 minutes was spent in coordinating discharge. cc: Trenton Norton TD: 09/12/2017 10:28
== END 2017-09-07 11:47 | DRG 308 ==
LOC: ED 12:49 → ICU 19:21 → MS2 09-04 08:21
PROVIDERS: ADMIT Hospitalist; ATTEND Specialist
DX: I48.2 Chronic atrial fibrillation (principal); I50.9 Heart failure, unspecified; R09.02 Hypoxemia; E11.9 Type 2 diabetes mellitus without complications; I50.23 Acute on chronic systolic (congestive) heart failure; E87.1 Hypo-osmolality and hyponatremia; Z79.4 Long term (current) use of insulin; I15.2 Hypertension secondary to endocrine disorders; E11.22 Type 2 diabetes mellitus with diabetic chronic kidney disease; N18.9 Chronic kidney disease, unspecified; E78.5 Hyperlipidemia, unspecified; E11.42 Type 2 diabetes mellitus with diabetic polyneuropathy; E11.65 Type 2 diabetes mellitus with hyperglycemia; E03.9 Hypothyroidism, unspecified; M48.54XD Collapsed vertebra, not elsewhere classified, thoracic region, subsequent encounter for fracture with routine healing; G89.29 Other chronic pain; Z79.01 Long term (current) use of anticoagulants
CPT/HCPCS: 36415; 71046; 80048; 80053; 80061; 81001; 81003; 83036; 83690; 83721; 83735; 83880; 84100; 84443; 84484; 85025; 87086; 87150; 93005; 93306; 96375; 96376; 99285